=== PATIENT | male | born 1965 | race Caucasian/White ===

== ENCOUNTER 2016-10-31 15:20 | Inpatient (IN) | payer BC ==
[~2016-10-31] VITALS: Ht 180.3 cm; Wt 163.0 kg
[~2016-10-31 15:20] MED LIST: AZAT50 PO; CANA300T PO; CPAP; GABA300C5 PO; LEVO.1 PO; LOVA20TA PO; MEST60TA PO; METF1000 PO; MONT10TA2 PO; NEBI20 PO; NOVOLOGMXP SQ; PRED5TAB PO; PROT40TA PO; RISP.25 PO; TRIBTAB PO; ZITH500T PO
[2016-10-31 17:40] VITALS: BP 120/64; PULSE 66; RESP 20; TEMP 97.7; O2SAT 96
[2016-10-31] MEDS ORDERED: IMUR50TA PO (17:42)
[2016-10-31] MEDS ORDERED: UMEC1AER INH (17:44)
[2016-10-31] MEDS ORDERED: ACETAMINOPHEN 325 MG TAB PO PRN (18:30)
[2016-10-31] MEDS ORDERED: SODIUM CHLORIDE 0.9% FLUSH 5 ML FLUSH FLUSH PRN (18:30)
[2016-10-31] MEDS ORDERED: Vancomycin Consult Pharmacy 1 EA OTHER SCH (18:30)
[2016-10-31] MEDS ORDERED: PIPERACIL-TAZO 3.375 GM PREMIX 50 ML IV SCH (18:30)
[2016-10-31] MEDS ORDERED: NALOXONE HCL 0.4 MG/ML AMP IV PRN (18:30)
[2016-10-31] MEDS ORDERED: ONDANSETRON HCL 4 MG/2 ML VIAL IVP PRN (18:30)
[2016-10-31] MEDS ORDERED: PILL SPLITTER OTHER PRN (19:45)
[2016-10-31 20:00] VITALS: BP 114/57; PULSE 100; RESP 18; TEMP 97.1; O2SAT 96
[2016-10-31] MEDS ORDERED: VANCOMYCIN INJ 1,000 MG in SODIUM CHLOR 0.9% 250 ML INJ 250 ML IV SCH (20:00)
[2016-10-31] MEDS ORDERED: predniSONE 5 MG TAB PO SCH (21:00)
[2016-10-31] MEDS: HEPARIN SODIUM - SQ 10,000 UNITS/ML VIAL SQ SCH (21:14)
[2016-10-31] MEDS: INSULIN ASPAR PROT 70/30 1,000 UNITS/10 ML VIAL SQ SCH (21:20)
[2016-10-31] MEDS: MONTELUKAST SODIUM 10 MG TAB PO SCH (21:25)
[2016-10-31] MEDS: PRAVASTATIN SOD 20 MG TAB PO SCH (21:25)
[2016-10-31] MEDS: SODIUM CHLORIDE 0.9% FLUSH 5 ML FLUSH FLUSH SCH (21:26)
[2016-10-31] MEDS: predniSONE 5 MG TAB PO SCH (21:30)
[2016-10-31] MEDS ORDERED: VANCOMYCIN 1,500 MG/NS 500 ML IV ONE ×2 (23:00)
[2016-10-31] MEDS ORDERED: AZTREONAM 2,000 MG/NS 100 ML IV ONE ×2 (23:00)
[2016-10-31 23:32] LABS: AUTOMATED NEUTROPHIL # 5.9 TH/MM3 (1.8-7.7); BASOPHIL # 0.1 TH/MM3 (0-0.2); BASOPHIL % 0.7 % (0.0-2.0); EOSINOPHIL # 0.1 TH/MM3 (0-0.4); EOSINOPHIL % 1.8 % (0.0-4.0); HEMATOCRIT 36.8 % (39.0-51.0); HEMO FLAGS DIFF FINAL; LYMPH % 16.9 % (9.0-44.0); LYMPHOCYTE # 1.4 TH/MM3 (1.0-4.8); MEAN CELL VOLUME 87.1 FL (80.0-100.0); MEAN CORPUSCULAR HEMOGLOBIN 28.7 PG (27.0-34.0); MONO % 8.2 % (0.0-8.0); NEUT % 72.4 % (16.0-70.0); PLATELET COUNT 149 TH/MM3 (150-450); RED BLOOD COUNT 4.23 MIL/MM3 (4.50-5.90); RED CELL DISTRIBUTION WIDTH 16.1 % (11.6-17.2); WHITE BLOOD COUNT 8.1 TH/MM3 (4.0-11.0)
[2016-11-01] VITALS (10 sets, daily range): BP systolic 121–146; BP diastolic 52–85; PULSE 63–77; RESP 16–18; TEMP 96.3–98.1; O2SAT 94–100
[2016-11-01 05:10] LABS: BLOOD, URINE NEG (NEG); COMMENT (UR) CULT NOT INDICATED; CULTURE IF INDICATED CULT NOT INDICATED; GLUCOSE,URINE 1000 mg/dL (NEG); KETONE, URINE 10 mg/dL (NEG); MUCUS URINE FEW /lpf (OCC); NITRITE,URINE NEG (NEG); URINE COLOR YELLOW (YELLW/STRAW)
[2016-11-01] MEDS: LEVOTHYROXINE SODIUM 100 MCG TAB PO SCH (05:45)
[2016-11-01 07:56] LABS: AUTOMATED NEUTROPHIL # 5.5 TH/MM3 (1.8-7.7); BASOPHIL % 0.6 % (0.0-2.0); EOSINOPHIL # 0.1 TH/MM3 (0-0.4); EOSINOPHIL % 1.6 % (0.0-4.0); HEMATOCRIT 37.2 % (39.0-51.0); HEMO FLAGS DIFF FINAL; LYMPH % 16.1 % (9.0-44.0); LYMPHOCYTE # 1.2 TH/MM3 (1.0-4.8); MEAN CORPUSCULAR HEMOGLOBIN 28.3 PG (27.0-34.0); MONO % 11.1 % (0.0-8.0); NEUT % 70.6 % (16.0-70.0); PLATELET COUNT 159 TH/MM3 (150-450); RED BLOOD COUNT 4.32 MIL/MM3 (4.50-5.90); RED CELL DISTRIBUTION WIDTH 15.7 % (11.6-17.2); WHITE BLOOD COUNT 7.8 TH/MM3 (4.0-11.0)
[2016-11-01] MEDS: HEPARIN SODIUM - SQ 10,000 UNITS/ML VIAL SQ SCH ×2 (08:00→19:40)
[2016-11-01] MEDS: PANTOPRAZOLE SOD 40 MG DELAYED RELEASE TAB PO SCH (08:12)
[2016-11-01] MEDS: SODIUM CHLORIDE 0.9% FLUSH 5 ML FLUSH FLUSH SCH ×2 (08:12→19:40)
[2016-11-01] MEDS: PYRIDOSTIGMINE BROMIDE 60 MG TAB PO SCH ×3 (08:12→18:09)
[2016-11-01] MEDS: UMECLIDINIUM 62.5 MCG/VILANTEROL 25 MCG INHALER INH SCH (08:12)
[2016-11-01] MEDS: NEBIVOLOL 10 MG TAB PO SCH (08:12)
[2016-11-01] MEDS: risperiDONE 0.25 MG TAB PO SCH (08:12)
[2016-11-01] MEDS: GABAPENTIN 300 MG CAP PO SCH ×3 (08:12→18:09)
[2016-11-01] MEDS: predniSONE 5 MG TAB PO SCH ×2 (08:12→19:40)
[2016-11-01 08:22] LABS: BICARBONATE 23.7 MEQ/L (21.0-32.0)
[2016-11-01] MEDS ORDERED: PT:INVOKANA 300 MG PO SCH (09:00)
[2016-11-01] MEDS ORDERED: NON-FORMULARY DRUG (Canagliflozin (Invokana) 300 MG) PO SCH (09:00)
[2016-11-01] MEDS ORDERED: NEBIVOLOL 20 MG PO SCH (09:00)
[2016-11-01] MEDS: INSULIN ASPAR PROT 70/30 1,000 UNITS/10 ML VIAL SQ SCH ×2 (09:43→18:11)
--- NOTE | 2016-11-01 10:08 | MH ---
cc: SAAD ONEILL MD DATE OF ADMISSION: 10/31/2016 DATE OF 1965 REASON FOR ADMISSION Exacerbation of myasthenia gravis. HISTORY OF PRESENT ILLNESS This is a pleasant, morbidly obese 51-year-old male who has been experiencing some increased onset of weakness and slurring and drooping of his eyes over the past week. He also initially had some dizziness and imbalance with his myasthenia gravis exacerbation. The patient went into his primary care physician's office, Genoveva forrest MD for a followup. The patient was noted to have increased weight, elevated blood pressure at 162/74. He also has been suffering with some mild erythema around his PermaCath port. This has been monitored and initially it was thought that he was pruritic in nature, but when the patient was receiving his last treatment recently, he did have a reaction with fever and chills when using that port. Most of this information is being gathered from the record. During my assessment with the patient, he states that his symptoms are now under control. He does sleep at night with BiPAP on. He is alert, oriented, cooperative and a good historian. The patient denies any chest pain. Denies any cough, no fever, no nausea or vomiting. The patient is a diabetic type 2 for greater than 10 years. He has multiple medical comorbidities which do exacerbate at times with his myasthenia gravis. MEDICAL HISTORY Per the record and the patient: 1. Morbid obesity 2. Obstructive sleep apnea 3. COPD 4. Hypertension 5. Diabetes mellitus type 2. He does take insulin for his blood sugars 6. Anemia 7. Gastroesophageal reflux disease 8. Extremity edema PAST SURGICAL HISTORY 1. Dual-chamber Vortex port 12 [place] placed in 2015 2. Colonoscopy in 2013. ALLERGIES PENICILLIN, CEFEPIME AND Maxipime. MEDICATIONS Reconciled and reported: 1. Prednisone 7.5 mg p.o. twice a day 2. Gabapentin 300 mg three times a day 3. Anoro Ellipta inhaler one puff daily 4. Risperdal 0.25 mg daily 5. Bystolic 20 mg daily 6. Metformin 1000 mg twice a day after meals 7. Tribenzor 1 mg daily 8. Losartan 20 mg at bedtime 9. Imuran 75 mg by mouth twice a day 10. NovoLog insulin mix of 70/30 85 units at bedtime and NovoLog mix 80 units subcu daily so he gets two doses 11. Singulair 10 mg at h.s. 12. Zithromax 500 mg daily 13. Mestinon 60 mg three times a day 14. Protonix 40 mg daily 15. Invokana 300 mg daily 16. Synthroid 100 mcg daily SOCIAL HISTORY The patient was a previous tobacco user, quit about 10 years ago. He does have an occasional now rare drink of wine. No illicit drugs. He is and lives at home with his . FAMILY HISTORY Diabetes, hypertension, stroke and cancer. REVIEW OF SYSTEMS A 12-point review was done, positives noted were his original dizziness and imbalance, generalized weakness, fatigue, slurring of speech and drooping of his eyes, morbid obesity. All other systems are negative or unremarkable. PHYSICAL EXAMINATION VITAL SIGNS: Temperature is 97.8, pulse 64, respirations 18, blood pressure 144/85, has been as low as 114/57, O2 sat 98. GENERAL: This is a morbidly obese male who looks to be his stated age resting in the bed, alert, oriented, cooperative. HEENT: Atraumatic, normocephalic. PERRLA at two. He has no scleral icterus. No drainage from his eyes. Mucous membranes are pink and moist. NECK: Thick, obese, short. CARDIOVASCULAR: S1-S2, distant heart sounds but no murmurs appreciated. Trace to 1+ pedal edema bilateral in his lower extremities. RESPIRATORY: Lungs are essentially clear to auscultation. No rhonchi. His chest wall is very thick, but lung sounds are essentially clear. ABDOMEN: Large round, soft, and nontender with active bowel sounds in all four quads. MUSCULOSKELETAL: He moves his extremities with purpose. 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 SKIN: His skin is pink, indra, warm and dry. NEUROLOGIC: He is alert and oriented, a good historian, responds to verbal stimuli. PSYCHIATRIC: Appropriate mood and affect. DIAGNOSTIC DATA WBC count 7.8, RBC 4.32, hemoglobin 12.3, hematocrit 37.2, platelet count 159, neutrophil percentage auto 70.6, monocyte auto percentage 11.1. Chemistry sodium 141, potassium 4, chloride 107, carbon dioxide 23.7, amnion gap 10, BUN 15, creatinine 0.72, random glucose 119, calcium 8.5. His urine is yellow and clear, pH is 6, specific gravity 1.035, negative for protein, occult blood, nitrites bilirubin and leukocyte esterase. His glucose is elevated at 1000. His ketones are 10. IMAGING STUDIES None ASSESSMENT 1. Myasthenia gravis exacerbation 2. Diabetes mellitus type 2 uncontrolled 3. Morbid obesity 4. Obstructive sleep apnea 5. Hypertension 6. Anemia 7. Possible sepsis and infection related to Perma-Cath site PLAN 1. Monitor his vital q4 and p.r.n. 2. We will reconcile his medications. 3. DVT prophylaxis with heparin 4. PUD prophylaxis with Protonix. 5. The patient was placed on antibiotics for the possible line infection of vancomycin and Aztreonam. 6. We will consult ID for their expert opinion. We are looking at changing out and discontinuing the current catheter line in place and placing a new one. 7. We will do Accu-Chek's a.c. and at h.s with sliding-scale 8. 1800 calories ADA diabetic diet. 9. The patient can use his own C-PAP machine at h.s. 10. We will consult respiratory for O2 needs and monitoring of his respiratory needs. Initially the patient was placed on Bedrest. We will monitor him with assistance for any needs for being out of the bed or bedside commode. To my knowledge the patient is a full code, full aggressive care and we will follow. Thank you very much. Dictated by LEN Ruff MD ECHO Brown/FER /9:03 AM /10:07 AM
[2016-11-01] MEDS ORDERED: AZTREONAM IV SCH ×2 (11:00)
[2016-11-01] MEDS ORDERED: AZTREONAM 2,000 MG/NS 100 ML IV SCH ×2 (11:00)
[2016-11-01] MEDS ORDERED: SODIUM CHLORIDE IV SCH ×2 (11:00)
[2016-11-01] MEDS ORDERED: NON-FORMULARY DRUG (Olmesartan-Amlodipine-Hydrochlorothiazide (Tribenzor) 1 TAB) PO SCH (12:30)
--- NOTE | 2016-11-01 13:33 | PD.CONS ---
History of Present Illness Service Infectious disease Consult Requested By Dr Day Reason for Consult Evaluate patient with positive blood cultures Primary Care Physician Genoveva Pelaez DO Diagnoses: History of Present Illness Patient seen and examined. Records reviewed. Patient is a 51-year-old morbidly obese male, admitted to the hospital for further evaluation of his positive blood culture. Patient has a diagnosis of myasthenia gravis, and when he gets exacerbation of his neurological problem, he usually gets a plasmapheresis. He had some venous access at some point on the right side and had some complications related to the access and it has to be removed. He had an [id number] at 1.8 and February or March of last year, and developed a hematoma on his right chest wall. It eventually developed into an abscess, and he was treated for the abscess, and the port was removed. His most recent access is in his left IJ and ate a permacath that was placed May 2016. Since last week he was started on a 4 series of treatment of plasmapheresis and he has had 2 treatments. Last October 30 he was undergoing plasmapheresis and about group home during the treatment, he developed chills and fever. His treatment was stopped, and blood cultures were done. He felt fine after that and has not had any recurrent chills or fever. He was referred to Dr. Garza, an infectious disease specialist, but apparently his blood cultures came back positive, and it was advised that patient go to the hospital for further evaluation and treatment. Patient currently has no fever. His WBC is normal. He has no other complaints. According to the patient he knows when he is getting exacerbation of his myasthenia gravis, he would have slurred speech , and then he would have difficulty opening his eyes, then swallowing difficulty , and without treatment it would progress to difficulty breathing. His symptoms are all better and he seems to be back to his baseline. Infectious disease consultation has been requested to evaluate the patient. Review of Systems Constitutional: COMPLAINS OF: Fever, Chills, Night Sweats, DENIES: Change in appetite Eyes: DENIES: Eye pain Ears, nose, mouth, throat: DENIES: Nasal discharge, Oral lesions, Throat pain, Ear Pain, Sinus Pain, Toothache Respiratory: COMPLAINS OF: Shortness of breath, DENIES: Cough, Sputum production Cardiovascular: DENIES: Chest pain, Palpitations, Syncope Gastrointestinal: DENIES: Abdominal pain, Diarrhea, Nausea, Vomiting, Difficulty Swallowing Genitourinary: DENIES: Dysuria Musculoskeletal: DENIES: Joint pain, Joint Swelling Integumentary: DENIES: Rash Immunologic/allergic: DENIES: Urticaria Neurologic: DENIES: Headache Psychiatric: DENIES: Confusion, Hallucinations Past Family Social History Allergies: Coded Allergies: Penicillin (Verified Allergy, Unknown, Hives, 10/31/16) THROAT SWELLING Uncoded Allergies: maxipime (Adverse Reaction, Severe, Burning, 03/27/16) cefepime (Adverse Reaction, Unknown, Burning, 03/27/16) Past Medical History Morbid obesity Obstructive sleep apnea COPD Hypertension Diabetes mellitus type 2. He does take insulin for his blood sugars Anemia Gastroesophageal reflux disease Lower extremity edema Past Surgical History Infusaport placement x 2, and removal Previous colonoscopy Active Ordered Medications Prednisone Mestinon Risperdal Protonix Pravachol Bystolic Zofran Cozaar Singulair Insulin Synthroid Neurontin Hydrochlorothiazide Vancomycin Azactam Heparin Tylenol Norvasc Imuran Social History Ex smoker, quit 10 years ago Occasional alcohol No illicit drug Physical Exam Vital Signs Vital Signs Date Time Temp Pulse Resp B/P Pulse Ox O2 Delivery O2 Flow Rate FiO2 11/01/16 11:50 97.3 73 16 146/83 100 11/01/16 11:12 72 11/01/16 09:48 97 21 11/01/16 08:00 97.4 66 16 122/77 100 11/01/16 04:00 97.8 64 18 144/85 98 11/01/16 01:13 63 11/01/16 00:00 98.1 66 18 121/52 94 10/31/16 20:00 97.1 100 18 114/57 96 10/31/16 17:40 97.7 66 20 120/64 96 Physical Exam GENERAL: This is an obese, well-developed male, awake and alert, looks comfortable at rest. SKIN: Warm and moist. No generalized rash or ecchymosis. No peripheral embolic lesions seen. HEAD: Atraumatic. Normocephalic. No temporal or scalp tenderness. EYES: [place] conjunctivae, no petechia or hemorrhage. Pupils equal round and reactive. Extraocular motions intact. No scleral icterus. No injection or drainage. ENT: Nose without bleeding, or purulent drainage. Moist oral mucosa. Throat without erythema, or exudate. Uvula midline. Airway patent. NECK: Short and obese. Supple, nontender, no meningeal signs. CARDIOVASCULAR: Regular rate and rhythm without murmurs, gallops, or rubs. Soft heart sounds. Permacath exit site looks ok, dry, no redness, no drainage, not tender, and it tunnels to [facility], the tunnelled portion is not tender and has no redness. RESPIRATORY: Clear to auscultation. Breath sounds equal bilaterally. No wheezes , rales, or rhonchi. Decreased breath sounds at the bases. GASTROINTESTINAL: Abdomen obese, soft, non-tender, nondistended. Bowel sounds are present and hypoactive. Otherwise difficult evaluation for any organomegaly due to the size. MUSCULOSKELETAL: Extremities without clubbing, cyanosis, or edema. No joint effusion, or edema noted. No calf tenderness. Negative Homans sign bilaterally. NEUROLOGICAL: Awake and alert. Cranial nerves II through XII intact. Motor and sensory grossly within normal limits. Five out of 5 muscle strength in all muscle groups. Normal speech. PSYCH: Normal affect, calm and cooperative Laboratory Laboratory Tests Test 10/31/16 11/01/16 11/01/16 21:00 04:50 06:52 White Blood Count 8.1 7.8 Red Blood Count 4.23 4.32 Hemoglobin 12.1 12.3 Hematocrit 36.8 37.2 Mean Corpuscular Volume 87.1 86.0 Mean Corpuscular Hemoglobin 28.7 28.3 Mean Corpuscular Hemoglobin 33.0 33.0 Concent Red Cell Distribution Width 16.1 15.7 Platelet Count 149 159 Mean Platelet Volume 8.5 7.7 Neutrophils (%) (Auto) 72.4 70.6 Lymphocytes (%) (Auto) 16.9 16.1 Monocytes (%) (Auto) 8.2 11.1 Eosinophils (%) (Auto) 1.8 1.6 Basophils (%) (Auto) 0.7 0.6 Neutrophils # (Auto) 5.9 5.5 Lymphocytes # (Auto) 1.4 1.2 Monocytes # (Auto) 0.7 0.9 Eosinophils # (Auto) 0.1 0.1 Basophils # (Auto) 0.1 0.0 CBC Comment DIFF FINAL DIFF FINAL Differential Comment Urine Color YELLOW Urine Turbidity CLEAR Urine pH 6.0 Urine Specific [place] 1.035 Urine Protein NEG Urine Glucose (UA) 1000 Urine Ketones 10 Urine Occult Blood NEG Urine Nitrite NEG Urine Bilirubin NEG Urine Urobilinogen LESS THAN 2.0 Urine Leukocyte Esterase NEG Urine RBC 1 Urine WBC LESS THAN 1 Urine Mucus FEW Microscopic Urinalysis Comment CULT NOT INDICATED Sodium Level 141 Potassium Level 4.0 Chloride Level 107 Carbon Dioxide Level 23.7 Anion Gap 10 Blood Urea Nitrogen 15 Creatinine 0.72 Estimat Glomerular Filtration 116 Rate Random Glucose 119 Calcium Level 8.5 Date/Time Procedure Status Source Growth 11/01/16 06:57 Aerobic Blood Culture Received Blood Peripheral Pending 11/01/16 06:57 Anaerobic Blood Culture Received Blood Peripheral Pending Result Diagram: 11/01/16 0652 11/01/1652 Assessment and Plan Assessment and Plan IMPRESSION Sepsis, with BC (+) Coag Negative Staph, from permacath infection - had fever and chills during his plasmapheresis Myasthenia gravis Sleep apnea, COPD Morbid obesity RECOMMENDATION US [facility]J and LSC to check for thrombus Follow C/S Continue IV Vancomycin Stop Azactam Will likely need removal of permacath Follow C/S Monitor temps Will determine course of Rx once work-up is completed I will follow along with you Thank you for this consultation Discussed Condition With Explained plan to patient Reta Martin MD Nov 01, 2016 13:33
[2016-11-01] MEDS ORDERED: LIDOCAINE 1%/EPINEPHrine 1:100,000 SOLN 20 ML VIAL ONE (14:02)
--- NOTE | 2016-11-01 15:27 | RADRPT ---
EXAM DATE/TIME: 11/01/2016 00:00 [facility] COMPARISON: No previous studies available for comparison. INDICATIONS : Patient with history of myasthenia gravis in need of tunnelled dialysis catheter removal due to infec tion. MEDICAL HISTORY : HTN, Obstructive sleep apnea, COPD, Diabetes, Anemia, GERD, Extremity edema, Hypothyroid SURGICAL HISTORY : Dual port placement and removal, Dialysis catheter placement, Colonoscopy, Tonsillectomy ENCOUNTER: Subsequent ACUITY: 1 day PAIN SCORE: 0/10 PROCEDURE : 1. PermaCath removal. The risks, benefits and alternatives to the procedure were explained and verbal and written consent w as obtained. The site was prepped in sterile fashion. Full sterile technique was used, including ca p, mask, sterile gloves and gown and a large sterile sheet. Hand hygiene and 2% chlorhexidine and/or betadine/alcohol prep was utilized per protocol for cutaneous antisepsis. The skin and subcutaneous tissues were infiltrated with local anesthetic solution. The tract was anesthetized with 1% Lidocaine using. The Permcath was dissected from the subcutaneous tissues and easily removed in one piece. Manual pressure was applied to the venotomy site until hem ostasis was obtained. Sterile dressing was applied. The patient tolerated the procedure well and there were no complications. CONCLUSION: Uncomplicated Permcath removal. Braxton Dimas MD on November 01, 2016 at 15:25 Board Certified Radiologist. This report was verified electronically.
[2016-11-01] MEDS: VANCOMYCIN INJ 2,250 MG in SODIUM CHLORID 0.9% 500 ML INJ 500 ML IV SCH (15:59)
--- NOTE | 2016-11-01 16:13 | RADRPT ---
EXAM DATE/TIME: 11/01/2016 15:06 [facility] COMPARISON: ULTRASOUND SOFT TISSUE, March 27, 2016, 15:25. INDICATIONS : Left arm pain post permacath removal. MEDICAL HISTORY : Hypercholesterolemia. Hypertension. Chronic obstructive pulmonary disease. Thyroid disease. GERD. Barbara betes. Myastinia Gravis. SURGICAL HISTORY : Tonsillectomy. Port placement and removal. Permacath placement and removal. ENCOUNTER: Initial ACUITY: 1 day PAIN SCORE: 0/10 LOCATION: Left arm. FINDINGS: There is spontaneous flow documented in the brachial, basilic, cephalic, axillary, and subclavian vei ns. The vessels are compressible and augmentation response is documented. No filling defects are se en. The flow is phasic with respiration. Direction of flow in the jugular vein is caudal. CONCLUSION: 1. No venous thrombosis identified. Valdemar Blevins MD on November 01, 2016 at 16:12 Board Certified Radiologist. This report was verified electronically.
[2016-11-01] MEDS: PRAVASTATIN SOD 20 MG TAB PO SCH (19:39)
[2016-11-01] MEDS: MONTELUKAST SODIUM 10 MG TAB PO SCH (19:39)
[2016-11-01] MEDS: azaTHIOprine 50 MG TAB PO SCH (19:39)
[2016-11-01] MEDS: LOSARTAN 50 MG TAB PO SCH (20:22)
[2016-11-01] MEDS: HYDROCHLOROTHIAZIDE 12.5 MG CAP PO SCH (20:22)
[2016-11-01] MEDS: amLODIPine BESYLATE 5 MG TAB PO SCH (20:22)
[2016-11-02] VITALS (8 sets, daily range): BP systolic 128–157; BP diastolic 54–79; PULSE 65–70; RESP 16–20; TEMP 97.1–98.5; O2SAT 93–97
[2016-11-02] MEDS: VANCOMYCIN INJ 2,250 MG in SODIUM CHLORID 0.9% 500 ML INJ 500 ML IV SCH ×2 (00:41→13:26)
[2016-11-02] MEDS: LEVOTHYROXINE SODIUM 100 MCG TAB PO SCH (05:20)
[2016-11-02] MEDS: HEPARIN SODIUM - SQ 10,000 UNITS/ML VIAL SQ SCH ×2 (08:00→20:00)
[2016-11-02] MEDS: GABAPENTIN 300 MG CAP PO SCH ×3 (08:09→18:04)
[2016-11-02] MEDS: risperiDONE 0.25 MG TAB PO SCH (08:09)
[2016-11-02] MEDS: PANTOPRAZOLE SOD 40 MG DELAYED RELEASE TAB PO SCH (08:09)
[2016-11-02] MEDS: PYRIDOSTIGMINE BROMIDE 60 MG TAB PO SCH ×3 (08:10→18:04)
[2016-11-02] MEDS: predniSONE 5 MG TAB PO SCH ×2 (08:10→20:11)
[2016-11-02] MEDS: NEBIVOLOL 10 MG TAB PO SCH (08:10)
[2016-11-02] MEDS: azaTHIOprine 50 MG TAB PO SCH ×2 (08:10→20:11)
[2016-11-02] MEDS: SODIUM CHLORIDE 0.9% FLUSH 5 ML FLUSH FLUSH SCH ×2 (08:11→20:12)
[2016-11-02] MEDS: UMECLIDINIUM 62.5 MCG/VILANTEROL 25 MCG INHALER INH SCH (08:11)
[2016-11-02] MEDS: INSULIN ASPAR PROT 70/30 1,000 UNITS/10 ML VIAL SQ SCH ×2 (08:12→18:06)
--- NOTE | 2016-11-02 14:47 | HHI.IDPN ---
Subjective Subjective Remarks Notes reviewed Temps ok No chills Permacath removed yesterday C/O some soreness at previous site Wants to know if he can take a shower Antibiotics Vancomycin Lines PIV Past Medical History Morbid obesity Obstructive sleep apnea COPD Hypertension Diabetes mellitus type 2. He does take insulin for his blood sugars Anemia Gastroesophageal reflux disease Lower extremity edema Past Surgical History Infusaport placement x 2, and removal Previous colonoscopy Allergies: Coded Allergies: Penicillin (Verified Allergy, Unknown, Hives, 10/31/16) THROAT SWELLING Uncoded Allergies: maxipime (Adverse Reaction, Severe, Burning, 03/27/16) cefepime (Adverse Reaction, Unknown, Burning, 03/27/16) Objective . Vital Signs Date Time Temp Pulse Resp B/P Pulse Ox O2 Delivery O2 Flow Rate FiO2 11/02/16 12:00 98.5 68 20 130/69 96 11/02/16 09:24 93 21 11/02/16 08:00 97.8 69 20 152/70 97 11/02/16 04:00 97.8 66 20 145/79 97 11/02/16 00:00 97.1 65 17 157/54 97 11/01/16 20:00 96.3 67 18 129/71 97 11/01/16 20:00 77 11/01/16 17:04 98 21 11/01/16 16:00 97.1 72 18 146/79 96 11/01/16 11/01/16 11/02/16 15:00 23:00 07:00 Intake Total 720 ml 600 ml Balance 720 ml 600 ml Intake Oral 720 ml 600 ml # Voids 2 2 . Laboratory Tests Test 10/31/16 11/01/16 21:00 06:52 White Blood Count 8.1 TH/MM3 7.8 TH/MM3 Red Blood Count 4.23 MIL/MM3 4.32 MIL/MM3 Hemoglobin 12.1 GM/DL 12.3 GM/DL Hematocrit 36.8 % 37.2 % Mean Corpuscular Volume 87.1 FL 86.0 FL Mean Corpuscular Hemoglobin 28.7 PG 28.3 PG Mean Corpuscular Hemoglobin 33.0 % 33.0 % Concent Red Cell Distribution Width 16.1 % 15.7 % Platelet Count 149 TH/MM3 159 TH/MM3 Mean Platelet Volume 8.5 FL 7.7 FL Neutrophils (%) (Auto) 72.4 % 70.6 % Lymphocytes (%) (Auto) 16.9 % 16.1 % Monocytes (%) (Auto) 8.2 % 11.1 % Eosinophils (%) (Auto) 1.8 % 1.6 % Basophils (%) (Auto) 0.7 % 0.6 % Neutrophils # (Auto) 5.9 TH/MM3 5.5 TH/MM3 Lymphocytes # (Auto) 1.4 TH/MM3 1.2 TH/MM3 Monocytes # (Auto) 0.7 TH/MM3 0.9 TH/MM3 Eosinophils # (Auto) 0.1 TH/MM3 0.1 TH/MM3 Basophils # (Auto) 0.1 TH/MM3 0.0 TH/MM3 CBC Comment DIFF FINAL DIFF FINAL Differential Comment Laboratory Tests Test 11/01/16 06:52 Sodium Level 141 MEQ/L Potassium Level 4.0 MEQ/L Chloride Level 107 MEQ/L Carbon Dioxide Level 23.7 MEQ/L Anion Gap 10 MEQ/L Blood Urea Nitrogen 15 MG/DL Creatinine 0.72 MG/DL Estimat Glomerular Filtration 116 ML/MIN Rate Random Glucose 119 MG/DL Calcium Level 8.5 MG/DL Microbiology Date/Time Procedure Status Source Growth 11/01/16 06:52 Aerobic Blood Culture - Preliminary Resulted Blood Peripheral NO GROWTH IN 1 DAY 11/01/16 06:52 Anaerobic Blood Culture - Preliminary Resulted Blood Peripheral NO GROWTH IN 1 DAY 11/01/16 06:57 Aerobic Blood Culture - Preliminary Resulted Blood Peripheral NO GROWTH IN 1 DAY 11/01/16 06:57 Anaerobic Blood Culture - Preliminary Resulted Blood Peripheral NO GROWTH IN 1 DAY 11/01/16 14:13 Wound Culture Received Catheter Tip Vas Cath Pending Imaging Upper Extremity Ultrasound 11/01/16 0000 Signed Impressions: Service Date/Time: Tuesday, November 01, 2016 15:06 - CONCLUSION: 1. No venous thrombosis identified. Valdemar Blevins MD Central Venous Line 11/01/16 0000 Signed Impressions: Service Date/Time: Tuesday, November 01, 2016 00:00 - CONCLUSION: Uncomplicated Permcath removal. Braxton Dimas MD Physical Exam GENERAL: , awake and alert, looks comfortable at rest. SKIN: Warm and moist. No generalized rash or ecchymosis. No peripheral embolic lesions seen. HEENT: [place] conjunctivae, no petechia or hemorrhage. No scleral icterus. Moist oral mucosa. Throat without erythema, or exudate. Uvula midline. Airway patent. NECK: Short and obese. Supple, nontender, no meningeal signs. Has some swelling at base of left side of his neck where he had the tunnelled cath CARDIOVASCULAR: Regular rate and rhythm without murmurs, gallops, or rubs. Soft heart sounds. Permacath exit site has some induration and small amount of serous drainage. RESPIRATORY: Clear to auscultation. Breath sounds equal bilaterally. No wheezes , rales, or rhonchi. Decreased breath sounds at the bases. GASTROINTESTINAL: Abdomen obese, soft, non-tender, nondistended. Bowel sounds are present and hypoactive. Otherwise difficult evaluation for any organomegaly due to the size. MUSCULOSKELETAL: Extremities without clubbing, cyanosis, or edema. No joint effusion, or edema noted. No calf tenderness. NEUROLOGICAL: Non-focal PSYCH: Normal affect, calm and cooperative Assessment & Plan Remarks IMPRESSION Sepsis, with BC (+) Coag Negative Staph, from permacath infection - had fever and chills during his plasmapheresis Myasthenia gravis Sleep apnea, COPD Morbid obesity RECOMMENDATION US [facility]J and LSC to check for thrombus Follow C/S Continue IV Vancomycin Monitor temps Monitor progress D/W Reta Brown MD Nov 02, 2016 14:47
--- NOTE | 2016-11-02 17:46 | HHI.PR ---
Subjective Interval History alert, oriented, no specific complaints other than wanting to have a shower Review of Systems Constitutional Constitutional Remarks 10 systems reviewed otherwise negative Vitals/Results Intake & Output 11/01/16 11/01/16 11/02/16 15:00 23:00 07:00 Intake Total 720 ml 600 ml Balance 720 ml 600 ml Intake Oral 720 ml 600 ml # Voids 2 2 Vital Signs Vital Signs Date Time Temp Pulse Resp B/P Pulse Ox O2 Delivery O2 Flow Rate FiO2 11/02/16 17:01 69 11/02/16 16:00 98.2 70 16 128/71 97 11/02/16 12:00 98.5 68 20 130/69 96 11/02/16 09:24 93 21 11/02/16 08:00 97.8 69 20 152/70 97 11/02/16 04:00 97.8 66 20 145/79 97 11/02/16 00:00 97.1 65 17 157/54 97 11/01/16 20:00 96.3 67 18 129/71 97 11/01/16 20:00 77 CBC/BMP: 11/01/16 0652 11/01/16 0652 Physical Exam General General Appearance: Well Developed, No Acute Distress, Comfortable, Obese Eyes Eye Exam: Pupils Reactive Ears & Nose Ears & Nose Exam: Nasal Mucosa [place] Throat Throat Exam: Oral Mucosa [place] & Moist Neck Neck Exam: Trachea Midline Pulmonary Resp Exam: Breath Sounds Equal Cardiology CV Exam: Normal Sinus Rhythm Gastrointestinal/Abdomen GI Exam: Soft, Non-Tender Musculoskeletal MS Exam: Normal Tone Integumentary Skin Exam: Warm, Dry Skin Remarks Psoriasis Extremeties Extremities Exam: Trace Edema Neurologic Neuro Exam: Alert, Awake, Oriented Psychiatric Psych Exam: Appropriate Responses Assessment/Plan Assessment/Plan ASSESSMENT . Gram-negative Bacteremia, likely secondary to line infection . Myasthenia gravis exacerbation . Diabetes mellitus type 2 uncontrolled . Morbid obesity . Obstructive sleep apnea . Hypertension . Anemia . Possible sepsis and infection related to Perma-Cath site PLAN . Intravenous antibiotics according to infectious disease specialist . Monitor his vital q4 and p.r.n. . DVT prophylaxis with heparin . PUD prophylaxis with Protonix. . Central line removed, tip culture pending . We will do Accu-Chek's a.c. and at h.s with sliding-scale . 1800 calories ADA diabetic diet. . The patient can use his own C-PAP machine at h.s. . Supplemental oxygen Discussed with patient Discussed with nurse Baldomero Leone MD Nov 02, 2016 17:46
[2016-11-02] MEDS: LOSARTAN 50 MG TAB PO SCH (20:11)
[2016-11-02] MEDS: PRAVASTATIN SOD 20 MG TAB PO SCH (20:12)
[2016-11-02] MEDS: MONTELUKAST SODIUM 10 MG TAB PO SCH (20:12)
[2016-11-02] MEDS: HYDROCHLOROTHIAZIDE 12.5 MG CAP PO SCH (20:12)
[2016-11-02] MEDS: amLODIPine BESYLATE 5 MG TAB PO SCH (20:12)
[2016-11-03] VITALS (8 sets, daily range): BP systolic 129–143; BP diastolic 64–90; PULSE 57–86; RESP 16–18; TEMP 96.3–97.8; O2SAT 94–97
[2016-11-03] MEDS: VANCOMYCIN INJ 2,250 MG in SODIUM CHLORID 0.9% 500 ML INJ 500 ML IV SCH ×2 (00:38→14:04)
[2016-11-03] MEDS ORDERED: PHARMACY ORDERED LAB XX ONE (00:45)
[2016-11-03] MEDS: LEVOTHYROXINE SODIUM 100 MCG TAB PO SCH (05:45)
[2016-11-03 07:14] LABS: AUTOMATED NEUTROPHIL # 4.4 TH/MM3 (1.8-7.7); BASOPHIL % 0.8 % (0.0-2.0); EOSINOPHIL # 0.1 TH/MM3 (0-0.4); EOSINOPHIL % 2.4 % (0.0-4.0); HEMATOCRIT 37.2 % (39.0-51.0); HEMO FLAGS DIFF FINAL; LYMPH % 15.9 % (9.0-44.0); MEAN CELL VOLUME 86.1 FL (80.0-100.0); MEAN CORPUSCULAR HEMOGLOBIN 28.3 PG (27.0-34.0); MEAN CORPUSCULAR HGB CONC 32.9 % (32.0-36.0); MONO % 9.9 % (0.0-8.0); PLATELET COUNT 176 TH/MM3 (150-450); RED BLOOD COUNT 4.31 MIL/MM3 (4.50-5.90); RED CELL DISTRIBUTION WIDTH 15.7 % (11.6-17.2); WHITE BLOOD COUNT 6.2 TH/MM3 (4.0-11.0)
[2016-11-03 07:56] LABS: BICARBONATE 29.8 MEQ/L (21.0-32.0); MAGNESIUM 2.1 MG/DL (1.5-2.5); POTASSIUM 4.3 MEQ/L (3.5-5.1)
[2016-11-03] MEDS: GABAPENTIN 300 MG CAP PO SCH ×3 (08:39→17:57)
[2016-11-03] MEDS: NEBIVOLOL 10 MG TAB PO SCH (08:39)
[2016-11-03] MEDS: azaTHIOprine 50 MG TAB PO SCH ×2 (08:39→21:11)
[2016-11-03] MEDS: PANTOPRAZOLE SOD 40 MG DELAYED RELEASE TAB PO SCH (08:39)
[2016-11-03] MEDS: predniSONE 5 MG TAB PO SCH ×2 (08:39→21:12)
[2016-11-03] MEDS: PYRIDOSTIGMINE BROMIDE 60 MG TAB PO SCH ×3 (08:45→17:57)
[2016-11-03] MEDS: risperiDONE 0.25 MG TAB PO SCH (08:47)
[2016-11-03] MEDS: INSULIN ASPAR PROT 70/30 1,000 UNITS/10 ML VIAL SQ SCH ×2 (08:48→17:57)
[2016-11-03] MEDS: SODIUM CHLORIDE 0.9% FLUSH 5 ML FLUSH FLUSH SCH ×2 (08:48→21:13)
[2016-11-03] MEDS: HEPARIN SODIUM - SQ 10,000 UNITS/ML VIAL SQ SCH ×2 (08:48→20:00)
[2016-11-03] MEDS: UMECLIDINIUM 62.5 MCG/VILANTEROL 25 MCG INHALER INH SCH (08:49)
[2016-11-03] MEDS ORDERED: ACETAMINOPHEN 325 MG TAB PO PRN (12:00)
--- NOTE | 2016-11-03 15:08 | HHI.IDPN ---
Subjective Subjective Remarks Notes reviewed Temps ok No chills Permacath removed 11/01 Follow-up BC negative Cath tip with Coag neg Staph and GNR No GNR in any BC Micro working up the Coag Neg Staph in the second BC; one had Staph epi Micro willl also work-up the Coag Neg Staph in his permacath tip Antibiotics Vancomycin Lines PIV Past Medical History Morbid obesity Obstructive sleep apnea COPD Hypertension Diabetes mellitus type 2. He does take insulin for his blood sugars Anemia Gastroesophageal reflux disease Lower extremity edema Past Surgical History Infusaport placement x 2, and removal Previous colonoscopy Allergies: Coded Allergies: Penicillin (Verified Allergy, Unknown, Hives, 10/31/16) THROAT SWELLING Uncoded Allergies: maxipime (Adverse Reaction, Severe, Burning, 03/27/16) cefepime (Adverse Reaction, Unknown, Burning, 03/27/16) Objective . Vital Signs Date Time Temp Pulse Resp B/P Pulse Ox O2 Delivery O2 Flow Rate FiO2 11/03/16 12:00 97.4 69 16 139/90 96 11/03/16 08:00 96.3 66 16 142/90 95 11/03/16 04:00 96.7 86 18 143/79 96 11/03/16 00:00 97.8 57 16 138/64 97 11/02/16 20:00 97.7 70 18 133/67 94 11/02/16 20:00 68 11/02/16 17:01 69 11/02/16 16:00 98.2 70 16 128/71 97 11/02/16 11/02/16 11/03/16 15:00 23:00 07:00 Intake Total 1200 ml 450 ml 200 ml Balance 1200 ml 450 ml 200 ml Intake Oral 1200 ml 450 ml 200 ml # Voids 3 1 1 # Bowel Movements 1 0 0 . Laboratory Tests Test 11/03/16 06:23 White Blood Count 6.2 TH/MM3 Red Blood Count 4.31 MIL/MM3 Hemoglobin 12.2 GM/DL Hematocrit 37.2 % Mean Corpuscular Volume 86.1 FL Mean Corpuscular Hemoglobin 28.3 PG Mean Corpuscular Hemoglobin 32.9 % Concent Red Cell Distribution Width 15.7 % Platelet Count 176 TH/MM3 Mean Platelet Volume 7.7 FL Neutrophils (%) (Auto) 71.0 % Lymphocytes (%) (Auto) 15.9 % Monocytes (%) (Auto) 9.9 % Eosinophils (%) (Auto) 2.4 % Basophils (%) (Auto) 0.8 % Neutrophils # (Auto) 4.4 TH/MM3 Lymphocytes # (Auto) 1.0 TH/MM3 Monocytes # (Auto) 0.6 TH/MM3 Eosinophils # (Auto) 0.1 TH/MM3 Basophils # (Auto) 0.0 TH/MM3 CBC Comment DIFF FINAL Differential Comment Laboratory Tests Test 11/03/16 06:23 Sodium Level 140 MEQ/L Potassium Level 4.3 MEQ/L Chloride Level 105 MEQ/L Carbon Dioxide Level 29.8 MEQ/L Anion Gap 5 MEQ/L Blood Urea Nitrogen 16 MG/DL Creatinine 0.88 MG/DL Estimat Glomerular Filtration 92 ML/MIN Rate Random Glucose 238 MG/DL Calcium Level 8.3 MG/DL Phosphorus Level 3.7 MG/DL Magnesium Level 2.1 MG/DL Microbiology Date/Time Procedure Status Source Growth 11/01/16 06:52 Aerobic Blood Culture - Preliminary Resulted Blood Peripheral NO GROWTH IN 2 DAYS 11/01/16 06:52 Anaerobic Blood Culture - Preliminary Resulted Blood Peripheral NO GROWTH IN 2 DAYS 11/01/16 06:57 Aerobic Blood Culture - Preliminary Resulted Blood Peripheral NO GROWTH IN 2 DAYS 11/01/16 06:57 Anaerobic Blood Culture - Preliminary Resulted Blood Peripheral NO GROWTH IN 2 DAYS 11/01/16 14:13 Wound Culture - Preliminary Resulted Catheter Tip Vas Cath Staph Sp Coagulase Negative Gram Negative [facility] Upper Extremity Ultrasound 11/01/16 0000 Signed Impressions: Service Date/Time: Tuesday, November 01, 2016 15:06 - CONCLUSION: 1. No venous thrombosis identified. Valdemar Blevins MD Central Venous Line 11/01/16 0000 Signed Impressions: Service Date/Time: Tuesday, November 01, 2016 00:00 - CONCLUSION: Uncomplicated Permcath removal. Braxton Dimas MD Physical Exam GENERAL: , awakens easily, NAD. SKIN: Warm and moist. No generalized rash HEENT: [place] conjunctivae, no petechia or hemorrhage. No scleral icterus. Moist oral mucosa. NECK: Short and obese. Supple, nontender, no meningeal signs. Has some mild swelling at base of left side of his neck where he had the tunnelled cath CARDIOVASCULAR: Regular rate and rhythm without murmurs, gallops, or rubs. Soft heart sounds. Permacath exit site has some induration and small amount of serous drainage. RESPIRATORY: Clear to auscultation. Decreased breath sounds at the bases. GASTROINTESTINAL: Abdomen obese, soft, non-tender, nondistended. Bowel sounds are present and hypoactive. Otherwise difficult evaluation for any organomegaly due to the size. MUSCULOSKELETAL: Extremities without clubbing, cyanosis, or edema. No joint effusion, or edema noted. No calf tenderness. NEUROLOGICAL: Non-focal PSYCH: Normal affect, calm and cooperative Assessment & Plan Remarks IMPRESSION Sepsis, with BC (+) Coag Negative Staph, from permacath infection - had fever and chills during his plasmapheresis Myasthenia gravis Sleep apnea, COPD Morbid obesity RECOMMENDATION Follow C/S - micro doing ID of the second BC with Coag Neg Staph, as well as the Coag neg Staph in permacath tip Continue IV Vancomycin - at least 10-14 days, end date november 14 Follow C/S Monitor temps Monitor progress Reta Martin MD Nov 03, 2016 15:08
--- NOTE | 2016-11-03 18:47 | HHI.PR ---
Subjective Interval History Alert, oriented, seemed presence of his , denies any complaints at this time , his myasthenia gravis is quiescent at this time Review of Systems Constitutional Constitutional Remarks 10 systems reviewed otherwise negative Vitals/Results Intake & Output 11/02/16 11/02/16 11/03/16 15:00 23:00 07:00 Intake Total 1200 ml 450 ml 200 ml Balance 1200 ml 450 ml 200 ml Intake Oral 1200 ml 450 ml 200 ml # Voids 3 1 1 # Bowel Movements 1 0 0 Vital Signs Vital Signs Date Time Temp Pulse Resp B/P Pulse Ox O2 Delivery O2 Flow Rate FiO2 11/03/16 16:00 96.3 72 16 129/76 96 11/03/16 15:53 16 11/03/16 12:00 97.4 69 16 139/90 96 11/03/16 08:00 96.3 66 16 142/90 95 11/03/16 07:10 59 11/03/16 04:00 96.7 86 18 143/79 96 11/03/16 00:00 97.8 57 16 138/64 97 11/02/16 20:00 97.7 70 18 133/67 94 11/02/16 20:00 68 CBC/BMP: 11/03/16 0623 11/03/16 0623 Lab Results Laboratory Tests Test 11/03/16 11/03/16 00:45 06:23 Vancomycin Level Trough 12.8 MCG/ML White Blood Count 6.2 TH/MM3 Red Blood Count 4.31 MIL/MM3 Hemoglobin 12.2 GM/DL Hematocrit 37.2 % Mean Corpuscular Volume 86.1 FL Mean Corpuscular Hemoglobin 28.3 PG Mean Corpuscular Hemoglobin 32.9 % Concent Red Cell Distribution Width 15.7 % Platelet Count 176 TH/MM3 Mean Platelet Volume 7.7 FL Neutrophils (%) (Auto) 71.0 % Lymphocytes (%) (Auto) 15.9 % Monocytes (%) (Auto) 9.9 % Eosinophils (%) (Auto) 2.4 % Basophils (%) (Auto) 0.8 % Neutrophils # (Auto) 4.4 TH/MM3 Lymphocytes # (Auto) 1.0 TH/MM3 Monocytes # (Auto) 0.6 TH/MM3 Eosinophils # (Auto) 0.1 TH/MM3 Basophils # (Auto) 0.0 TH/MM3 CBC Comment DIFF FINAL Differential Comment Sodium Level 140 MEQ/L Potassium Level 4.3 MEQ/L Chloride Level 105 MEQ/L Carbon Dioxide Level 29.8 MEQ/L Anion Gap 5 MEQ/L Blood Urea Nitrogen 16 MG/DL Creatinine 0.88 MG/DL Estimat Glomerular Filtration 92 ML/MIN Rate Random Glucose 238 MG/DL Calcium Level 8.3 MG/DL Phosphorus Level 3.7 MG/DL Magnesium Level 2.1 MG/DL Physical Exam General General Appearance: Well Developed, No Acute Distress, Comfortable, Obese Eyes Eye Exam: Pupils Reactive Ears & Nose Ears & Nose Exam: Nasal Mucosa [place] Throat Throat Exam: Oral Mucosa [place] & Moist Neck Neck Exam: Trachea Midline Pulmonary Resp Exam: Breath Sounds Equal Cardiology CV Exam: Normal Sinus Rhythm Gastrointestinal/Abdomen GI Exam: Soft, Non-Tender Musculoskeletal MS Exam: Normal Tone Integumentary Skin Exam: Warm, Dry Skin Remarks Psoriasis Extremeties Extremities Exam: Trace Edema Neurologic Neuro Exam: Alert, Awake, Oriented Psychiatric Psych Exam: Appropriate Responses Assessment/Plan Assessment/Plan ASSESSMENT . Gram-negative Bacteremia, likely secondary to line infection . Myasthenia gravis exacerbation . Diabetes mellitus type 2 uncontrolled . Morbid obesity . Obstructive sleep apnea . Hypertension . Anemia . Possible sepsis and infection related to Perma-Cath site . Central line removed, tip culture pending PLAN . Intravenous antibiotics according to infectious disease specialist . Monitor his vital q4 and p.r.n. . DVT prophylaxis with heparin . PUD prophylaxis with Protonix. . Accu-Chek's a.c. and at h.s with sliding-scale . 1800 calories ADA diabetic diet. . The patient can use his own C-PAP machine at h.s. . Supplemental oxygen . Follow cultures, including the PermCath tip . Continue vancomycin at least 10-14 days, and this time stop date is 11/14/16 Needs to lose weight Discussed with patient Discussed with nurse Baldomero Leone MD Nov 03, 2016 18:46
[2016-11-03] MEDS: PRAVASTATIN SOD 20 MG TAB PO SCH (21:09)
[2016-11-03] MEDS: amLODIPine BESYLATE 5 MG TAB PO SCH (21:10)
[2016-11-03] MEDS: HYDROCHLOROTHIAZIDE 12.5 MG CAP PO SCH (21:10)
[2016-11-03] MEDS: LOSARTAN 50 MG TAB PO SCH (21:10)
[2016-11-03] MEDS: MONTELUKAST SODIUM 10 MG TAB PO SCH (21:12)
[2016-11-04] VITALS (7 sets, daily range): BP systolic 133–149; BP diastolic 75–86; PULSE 66–73; RESP 18–20; TEMP 96.2–97.4; O2SAT 95–97
[2016-11-04] MEDS: VANCOMYCIN INJ 2,250 MG in SODIUM CHLORID 0.9% 500 ML INJ 500 ML IV SCH ×2 (00:33→12:38)
[2016-11-04] MEDS ORDERED: PHARMACY ORDERED LAB XX ONE (00:45)
[2016-11-04] MEDS: LEVOTHYROXINE SODIUM 100 MCG TAB PO SCH (05:02)
[2016-11-04] MEDS: INSULIN ASPAR PROT 70/30 1,000 UNITS/10 ML VIAL SQ SCH ×2 (08:47→17:45)
[2016-11-04] MEDS: GABAPENTIN 300 MG CAP PO SCH ×3 (08:48→17:38)
[2016-11-04] MEDS: PANTOPRAZOLE SOD 40 MG DELAYED RELEASE TAB PO SCH (08:48)
[2016-11-04] MEDS: risperiDONE 0.25 MG TAB PO SCH (08:48)
[2016-11-04] MEDS: azaTHIOprine 50 MG TAB PO SCH ×2 (08:49→20:25)
[2016-11-04] MEDS: NEBIVOLOL 10 MG TAB PO SCH (08:49)
[2016-11-04] MEDS: PYRIDOSTIGMINE BROMIDE 60 MG TAB PO SCH ×3 (08:49→17:38)
[2016-11-04] MEDS: HEPARIN SODIUM - SQ 10,000 UNITS/ML VIAL SQ SCH ×2 (08:53→20:00)
[2016-11-04] MEDS: SODIUM CHLORIDE 0.9% FLUSH 5 ML FLUSH FLUSH SCH ×2 (09:00→20:32)
[2016-11-04] MEDS: predniSONE 5 MG TAB PO SCH ×2 (09:09→20:28)
[2016-11-04] MEDS: UMECLIDINIUM 62.5 MCG/VILANTEROL 25 MCG INHALER INH SCH (09:11)
--- NOTE | 2016-11-04 16:00 | HHI.PR ---
Subjective Remarks Alert, oriented, denies any complaints at this time. Wants to go home. Needs outpatient IV abx. Objective Objective Results - Vital Signs Date Time Temp Pulse Resp B/P Pulse Ox O2 Delivery O2 Flow Rate FiO2 11/04/16 12:00 97.4 66 20 133/75 95 11/04/16 10:11 96.3 72 18 139/76 95 11/04/16 04:00 96.9 66 18 143/76 97 11/04/16 00:00 96.2 67 19 139/80 96 11/03/16 21:00 74 11/03/16 20:00 96.9 72 18 142/78 94 11/03/16 16:00 96.3 72 16 129/76 96 I/O 11/03/16 11/03/16 11/03/16 11/04/16 11/04/16 11/04/16 07:00 15:00 23:00 07:00 15:00 23:00 Intake Total 200 ml 960 ml 480 ml 120 ml 1020 ml Balance 200 ml 960 ml 480 ml 120 ml 1020 ml Intake Oral 200 ml 960 ml 480 ml 120 ml 1020 ml # Voids 1 5 6 1 1 # Bowel Movements 0 2 3 Result Diagram: 11/03/16 0623 11/03/16 0623 Other Results Laboratory Tests Test 11/04/16 00:30 Vancomycin Level Trough 14.2 Date/Time Procedure Status Source Growth 11/01/16 14:13 Wound Culture - Final Complete Catheter Tip Vas Cath Staphylococcus Epidermidis Gram Negative [facility] 11/01/16 06:57 Aerobic Blood Culture - Preliminary Resulted Blood Peripheral NO GROWTH IN 3 DAYS 11/01/16 06:57 Anaerobic Blood Culture - Preliminary Resulted Blood Peripheral NO GROWTH IN 3 DAYS ROS General: No: Fatigue, Weakness, Other HEENT: No: Sore Throat, Dysphagia, Other Cardiac: No: Chest Pain, Edema, Palpitations, Other Pulmonary: No: Cough, SOB, Wheezing, Other GI: No: Abdominal Pain, BM, Diarrhea, N/V, 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 He is alert and awake. HEAD: Normocephalic without any lesion or mass noted. Facial features appear symmetric. EYES: [place], Normal eye movement, No icterus. MOUTH/THROAT: Buccal mucosa is moist. NECK: Supple. No nuchal rigidity or lymphadenopathy. Trachea midline without deviation. Thyroid not palpable, no bruits appreciated. CARDIAC: Regular rhythm, regular rate, S1 and S2 are heard. No murmur.. LUNGS: Clear to auscultation bilaterally. No wheezes. ABDOMEN: Soft, nontender, no organomegaly or masses. Bowel sounds are heard in all four quadrants. No rebound. No guarding. EXTREMITIES: Trace pedal edema. NEUROLOGICAL: No focal deficits. SKIN:Warm and moist PSYCH: Mood and affect appropriate A/P Assessment and Plan ASSESSMENT . Gram-negative Bacteremia, likely secondary to line infection . Myasthenia gravis exacerbation . Diabetes mellitus type 2 uncontrolled . Morbid obesity . Obstructive sleep apnea . Hypertension . Anemia . Possible sepsis and infection related to Perma-Cath site . Central line removed, tip culture: staph epidermidis. PLAN . Intravenous antibiotics according to infectious disease specialist . Monitor his vital q4 and p.r.n. . DVT prophylaxis with heparin . PUD prophylaxis with Protonix. . Accu-Chek's a.c. and at h.s with sliding-scale . 1800 calories ADA diabetic diet. . The patient can use his own C-PAP machine at h.s. . Supplemental oxygen . Continue vancomycin at least 10-14 days, and this time stop date is 11/14/16 Needs to lose weight Discussed with patient Discussed with nurse AM Nakul Farley Dc, MD Nov 04, 2016 16:00
[2016-11-04] MEDS: HYDROCHLOROTHIAZIDE 12.5 MG CAP PO SCH (20:24)
[2016-11-04] MEDS: LOSARTAN 50 MG TAB PO SCH (20:24)
[2016-11-04] MEDS: amLODIPine BESYLATE 5 MG TAB PO SCH (20:24)
[2016-11-04] MEDS: PRAVASTATIN SOD 20 MG TAB PO SCH (20:24)
[2016-11-04] MEDS: MONTELUKAST SODIUM 10 MG TAB PO SCH (20:25)
[2016-11-05] VITALS (8 sets, daily range): BP systolic 110–144; BP diastolic 69–82; PULSE 59–78; RESP 19–22; TEMP 97–98; O2SAT 94–98
[2016-11-05] MEDS: VANCOMYCIN INJ 2,250 MG in SODIUM CHLORID 0.9% 500 ML INJ 500 ML IV SCH ×2 (01:52→13:44)
[2016-11-05] MEDS: LEVOTHYROXINE SODIUM 100 MCG TAB PO SCH (05:05)
[2016-11-05] MEDS: HEPARIN SODIUM - SQ 10,000 UNITS/ML VIAL SQ SCH ×2 (08:00→19:19)
[2016-11-05 08:16] LABS: HEMATOCRIT 36.9 % (39.0-51.0); MEAN CELL VOLUME 85.3 FL (80.0-100.0); MEAN CORPUSCULAR HEMOGLOBIN 28.3 PG (27.0-34.0); MEAN CORPUSCULAR HGB CONC 33.2 % (32.0-36.0); PLATELET COUNT 193 TH/MM3 (150-450); RED BLOOD COUNT 4.32 MIL/MM3 (4.50-5.90); RED CELL DISTRIBUTION WIDTH 15.8 % (11.6-17.2); REVIEW FLAG FINAL; WHITE BLOOD COUNT 7.8 TH/MM3 (4.0-11.0)
[2016-11-05 08:30] LABS: BICARBONATE 31.5 MEQ/L (21.0-32.0); POTASSIUM 3.7 MEQ/L (3.5-5.1)
[2016-11-05] MEDS: PYRIDOSTIGMINE BROMIDE 60 MG TAB PO SCH ×3 (09:03→17:30)
[2016-11-05] MEDS: azaTHIOprine 50 MG TAB PO SCH ×2 (09:03→20:02)
[2016-11-05] MEDS: PANTOPRAZOLE SOD 40 MG DELAYED RELEASE TAB PO SCH (09:03)
[2016-11-05] MEDS: predniSONE 5 MG TAB PO SCH ×2 (09:03→20:02)
[2016-11-05] MEDS: risperiDONE 0.25 MG TAB PO SCH (09:03)
[2016-11-05] MEDS: GABAPENTIN 300 MG CAP PO SCH ×3 (09:03→17:30)
[2016-11-05] MEDS: NEBIVOLOL 10 MG TAB PO SCH (09:04)
[2016-11-05] MEDS: UMECLIDINIUM 62.5 MCG/VILANTEROL 25 MCG INHALER INH SCH (09:06)
[2016-11-05] MEDS: INSULIN ASPAR PROT 70/30 1,000 UNITS/10 ML VIAL SQ SCH ×2 (09:07→17:31)
[2016-11-05] MEDS: SODIUM CHLORIDE 0.9% FLUSH 5 ML FLUSH FLUSH SCH ×2 (09:07→20:43)
--- NOTE | 2016-11-05 16:14 | HHI.FF ---
Face to Face Verification Diagnosis: (1) Sepsis Home Health Nursing Order: Medical education Nursing assessment with vital signs IV medication administration I have seen patient Brett Jr Mitchell on 11/05/16. My clinical findings support the need for the requested home health care services because: Infection w/ risk of complications Injectable med education/admin I certify that my clinical findings support that this patient is homebound because: Unsafe to leave home unassisted Unable to use public transportation Anya Broderick Nov 05, 2016 16:14
--- NOTE | 2016-11-05 16:47 | HHI.PR ---
Subjective Subjective Remarks no cp no sob no difficulty speaking, eating no facial weakness no fever anxious to go home, understands he needs to have abx at discharge Review of Systems Constitutional Constitutional Remarks 12 point review of systems completed, negative except as noted above Vitals/Results Intake & Output 11/04/16 11/04/16 11/05/16 15:00 23:00 07:00 Intake Total 1020 ml 480 ml 240 ml Balance 1020 ml 480 ml 240 ml Intake Oral 1020 ml 480 ml 240 ml # Voids 1 6 2 # Bowel Movements 2 Vital Signs Vital Signs Date Time Temp Pulse Resp B/P Pulse Ox O2 Delivery O2 Flow Rate FiO2 11/05/16 12:00 97.7 64 22 110/69 96 11/05/16 08:30 59 11/05/16 08:00 97.4 68 22 142/69 94 11/05/16 04:00 97.0 60 20 141/82 98 11/05/16 00:00 97.3 66 20 144/78 97 11/04/16 20:00 70 11/04/16 20:00 97.1 68 18 139/80 97 CBC/BMP: 11/05/16 0735 11/05/16 0735 Lab Results Laboratory Tests Test 11/05/16 07:35 White Blood Count 7.8 TH/MM3 Red Blood Count 4.32 MIL/MM3 Hemoglobin 12.2 GM/DL Hematocrit 36.9 % Mean Corpuscular Volume 85.3 FL Mean Corpuscular Hemoglobin 28.3 PG Mean Corpuscular Hemoglobin 33.2 % Concent Red Cell Distribution Width 15.8 % Platelet Count 193 TH/MM3 Mean Platelet Volume 7.5 FL Sodium Level 143 MEQ/L Potassium Level 3.7 MEQ/L Chloride Level 103 MEQ/L Carbon Dioxide Level 31.5 MEQ/L Anion Gap 9 MEQ/L Blood Urea Nitrogen 14 MG/DL Creatinine 0.84 MG/DL Estimat Glomerular Filtration 97 ML/MIN Rate Random Glucose 144 MG/DL Calcium Level 8.5 MG/DL Physical Exam General General Appearance: Well Developed, Well Nourished, No Acute Distress, Comfortable, Obese Eyes Eye Exam: Pupils Reactive Ears & Nose Ears & Nose Exam: Nasal Mucosa [place] Throat Throat Exam: Oral Mucosa [place] & Moist Neck Neck Exam: Trachea Midline Pulmonary Resp Exam: Breath Sounds Equal Cardiology CV Exam: Normal Sinus Rhythm Gastrointestinal/Abdomen GI Exam: Soft, Non-Tender, Bowel Sounds Present, Non-Distended Musculoskeletal MS Exam: Normal Tone Integumentary Skin Exam: Warm, Dry Skin Remarks Right chest wall with dressing dry and intact Extremeties Extremities Exam: Pedal Pulses Palpable, Trace Edema Neurologic Neuro Exam: Alert, Awake, Oriented, Speech Clear, Moving All Extremities, No Focal Deficits Psychiatric Psych Exam: Appropriate Responses VTE Prophylaxis VTE Prophylaxis Device: SCDs VTE Prophylaxis Meds: Heparin Assessment/Plan Assessment/Plan ASSESSMENT . Gram-negative Bacteremia, likely secondary to line infection . Myasthenia gravis exacerbation . Diabetes mellitus type 2 uncontrolled . Morbid obesity . Obstructive sleep apnea . Hypertension . Anemia . Possible sepsis and infection related to Perma-Cath site . Central line removed, tip culture pending PLAN Status post permacath removal Continue with antibiotics per ID recommendations Follow cultures, results noted Will need antibiotics for at least 10-14 days, and date November 14 Case management consultation for home health care We'll order PICC to be done in the morning Continue with Accu-Cheks before meals and at bedtime and sliding scale ADA diet Sleep apnea Continue with CPAP at night Myasthenia gravis, stable Continue with Imuran, Mestinon, prednisone Hypertension-Continue with blood pressure medications Labs reviewed, stable Plan to discharge tomorrow after antibiotics arranged D/W pt D/W Dr Bahena D/W RN This patient was seen by myself and Dr. Bahena, this note is written on her behalf Anya Broderick Nov 05, 2016 16:47
[2016-11-05] MEDS: HYDROCHLOROTHIAZIDE 12.5 MG CAP PO SCH (20:02)
[2016-11-05] MEDS: LOSARTAN 50 MG TAB PO SCH (20:02)
[2016-11-05] MEDS: PRAVASTATIN SOD 20 MG TAB PO SCH (20:02)
[2016-11-05] MEDS: amLODIPine BESYLATE 5 MG TAB PO SCH (20:02)
[2016-11-05] MEDS: MONTELUKAST SODIUM 10 MG TAB PO SCH (20:06)
[2016-11-06] VITALS (7 sets, daily range): BP systolic 133–156; BP diastolic 62–79; PULSE 58–72; RESP 16–19; TEMP 96.3–98.1; O2SAT 95–98
[2016-11-06] MEDS: VANCOMYCIN INJ 2,250 MG in SODIUM CHLORID 0.9% 500 ML INJ 500 ML IV SCH ×2 (00:24→14:00)
[2016-11-06] MEDS: LEVOTHYROXINE SODIUM 100 MCG TAB PO SCH (05:26)
[2016-11-06] MEDS: HEPARIN SODIUM - SQ 10,000 UNITS/ML VIAL SQ SCH ×2 (08:00→21:50)
[2016-11-06] MEDS: SODIUM CHLORIDE 0.9% FLUSH 5 ML FLUSH FLUSH SCH ×2 (09:00→21:50)
[2016-11-06] MEDS: INSULIN ASPAR PROT 70/30 1,000 UNITS/10 ML VIAL SQ SCH ×2 (09:00→17:01)
[2016-11-06] MEDS: UMECLIDINIUM 62.5 MCG/VILANTEROL 25 MCG INHALER INH SCH (09:00)
[2016-11-06] MEDS: GABAPENTIN 300 MG CAP PO SCH ×3 (09:36→16:58)
[2016-11-06] MEDS: PYRIDOSTIGMINE BROMIDE 60 MG TAB PO SCH ×3 (09:36→16:58)
[2016-11-06] MEDS: azaTHIOprine 50 MG TAB PO SCH ×2 (09:36→21:49)
[2016-11-06] MEDS: risperiDONE 0.25 MG TAB PO SCH (09:36)
[2016-11-06] MEDS: predniSONE 5 MG TAB PO SCH ×2 (09:36→21:49)
[2016-11-06] MEDS: NEBIVOLOL 10 MG TAB PO SCH (09:36)
[2016-11-06] MEDS: PANTOPRAZOLE SOD 40 MG DELAYED RELEASE TAB PO SCH (09:36)
--- NOTE | 2016-11-06 10:14 | HHI.DCPOC ---
Discharge Care Plan Diagnosis: (1) Sepsis Your Health Problems Are: Skin Breakdown Goals to Promote Your Health * To prevent worsening of your condition and complications * To maintain your health at the optimal level Directions to Meet Your Goals Take your medications as prescribed Follow your dietary instruction Follow activity as directed Keep your appointments as scheduled Take your immunizations and boosters as scheduled If your symptoms worsen call your PCP, if no PCP go to Urgent Care Center or Emergency Room Smoking is Dangerous to Your Health. Avoid second hand smoke Call the 24-hour hour crisis hotline for domestic abuse at Anya Broderick [facility] Nov 06, 2016 10:13
--- NOTE | 2016-11-06 10:16 | HHI.PR ---
Subjective Subjective Remarks no cp no sob no difficulty speaking, eating no facial weakness no fever getting PICC today Review of Systems Constitutional Constitutional Remarks 12 point review of systems completed, negative except as noted above Vitals/Results Intake & Output 11/05/16 11/05/16 11/06/16 15:00 23:00 07:00 Intake Total 1680 ml 1800 ml 480 ml Balance 1680 ml 1800 ml 480 ml Intake Oral 1680 ml 1800 ml 480 ml # Voids 4 8 2 # Bowel Movements 1 Vital Signs Vital Signs Date Time Temp Pulse Resp B/P Pulse Ox O2 Delivery O2 Flow Rate FiO2 11/06/16 08:50 96.3 60 16 140/79 98 11/06/16 04:00 96.5 58 19 138/69 98 11/06/16 00:00 98.1 72 18 143/70 97 11/05/16 23:00 71 11/05/16 20:00 98.0 69 19 131/69 97 11/05/16 16:00 97.4 78 20 129/72 97 11/05/16 12:00 97.7 64 22 110/69 96 CBC/BMP: 11/05/16 0735 11/05/16 0735 Physical Exam General General Appearance: Well Developed, Well Nourished, No Acute Distress, Comfortable, Obese Eyes Eye Exam: Pupils Reactive Ears & Nose Ears & Nose Exam: Nasal Mucosa [place] Throat Throat Exam: Oral Mucosa [place] & Moist Neck Neck Exam: Trachea Midline Pulmonary Resp Exam: Breath Sounds Equal Cardiology CV Exam: Normal Sinus Rhythm Gastrointestinal/Abdomen GI Exam: Soft, Non-Tender, Bowel Sounds Present, Non-Distended Musculoskeletal MS Exam: Normal Tone Integumentary Skin Exam: Warm, Dry Skin Remarks Right chest wall with dressing dry and intact Extremeties Extremities Exam: Pedal Pulses Palpable, Trace Edema Neurologic Neuro Exam: Alert, Awake, Oriented, Speech Clear, Moving All Extremities, No Focal Deficits Psychiatric Psych Exam: Appropriate Responses VTE Prophylaxis VTE Prophylaxis Device: SCDs VTE Prophylaxis Meds: Heparin Assessment/Plan Assessment/Plan ASSESSMENT . Gram-negative Bacteremia, likely secondary to line infection . Myasthenia gravis exacerbation . Diabetes mellitus type 2 uncontrolled . Morbid obesity . Obstructive sleep apnea . Hypertension . Anemia . Possible sepsis and infection related to Perma-Cath site . Central line removed, tip culture pending PLAN Status post permacath removal Continue with antibiotics per ID recommendations Follow cultures, results noted Will need antibiotics for at least 10-14 days, and date November 14 Case management consultation for home health care PICC todayy Continue with Accu-Cheks before meals and at bedtime and sliding scale ADA diet Sleep apnea Continue with CPAP at night Myasthenia gravis, stable Continue with Imuran, Mestinon, prednisone Hypertension-Continue with blood pressure medications Plan to discharge tomorrow after antibiotics arranged F/U PCP, neurology Diet -diabetic Activity-as tolerated D/W pt D/W Dr Leone D/W RN This patient was seen by myself and Dr. Leone, this note is written on her behalf Anya Broderick Nov 06, 2016 10:16
--- NOTE | 2016-11-06 11:33 | RADRPT ---
EXAM DATE/TIME: 11/06/2016 10:44 [facility] COMPARISON: CHEST SINGLE AP, August 23, 2016, 19:04. INDICATIONS : Right side picc line placement. MEDICAL HISTORY : Hypertension. Hypercholesterolemia. diabetes SURGICAL HISTORY : port placement ENCOUNTER: Initial ACUITY: 4 - 6 days PAIN SCORE: 0/10 LOCATION: Bilateral chest FINDINGS: Portable AP view of the chest demonstrates a normal-sized cardiac silhouette. No effusion, consolidat ion, or pneumothorax is visualized. The bones and soft tissues demonstrate no acute abnormality. The right upper extremity PICC is looped overlying the axillary region and is located in an uncertain ves wade. CONCLUSION: The right upper extremity PICC is not in appropriate location. It is looped overlying the axillary re gion. Marshall Espinal MD on November 06, 2016 at 11:29 Board Certified Radiologist. This report was verified electronically.
--- NOTE | 2016-11-06 13:05 | HHI.FF ---
Infusion Therapy Location of Infusion Therapy: Home Health Care IV Infusion Order Patient Information Patient Weight 162.2 kg Diagnosis: Diagnosis Staph epi line related bacteremia Coded Allergies: Penicillin (Verified Allergy, Unknown, Hives, 10/31/16) THROAT SWELLING Uncoded Allergies: maxipime (Adverse Reaction, Severe, Burning, 03/27/16) cefepime (Adverse Reaction, Unknown, Burning, 03/27/16) Administer Medication Vancomycin Vancomycin 2.25 gm IV q12h Stop Treatment: Nov 13, 2016 Additional Information Venous access: PICC Line Additional Instructions [x] Peripheral flush and dressing changes per protocol [x] Implanted port and central assembly line brazer: * Implanted port: 10 ml Normal Saline followed by 5 ml Heparin 100 units/ml Heparin flush after each use and monthly to maintain. [] May leave port accessed during therapy. [] May leave peripheral site accessed for duration of therapy. [x] If patient has SOB or respiratory distress, check oxygen saturation. If less than 90% or clinical signs of respiratory distress, administer oxygen at 2 L/min. via nasal cannula and notify physician. [x] Anaphylaxis/Reaction orders: * Stop infusion. * Keep IV line open with saline flush. * Notify physician. * Monitor vital signs every 15 minutes until symptoms resolve. * Check Oxygen saturation; Oxygen at 2 L/min. via nasal cannula if less than 90% or clinical signs of respiratory distress. * Administer diphenhydramine (Benadryl) 25 mg IV STAT, (unless patient has received as pre-med). May repeat once, if necessary. * Solu-Cortef 250 mg IVP over 30-60 seconds, use 100 mg vials for each dissolution. * Epinephrine (1mg/1 ml) 0.3 mg subcutaneously or IVP now with any signs of respiratory distress. * Check with physician for new additional pre-med orders if patient is re- challenged or re-treated. [x] May remove PICC line when treatment complete, after confirming with Physician. [x] If the patient is admitted to the hospital, the ED, or transferred via [facility] , complete transfer form including medication reconciliation order sheet. Laboratory Tests Weekly Labs: CBC w/diff, Creatinine, Vancomycin Trough (November 08, call me with results) Reta Martin MD Nov 06, 2016 13:05
--- NOTE | 2016-11-06 13:07 | HHI.IDPN ---
Subjective Subjective Remarks Notes reviewed Temps ok Clinically doing well BC and Line tip with Staph epi Repeat BC negative Antibiotics Vancomycin Lines PIV Past Medical History Morbid obesity Obstructive sleep apnea COPD Hypertension Diabetes mellitus type 2. He does take insulin for his blood sugars Anemia Gastroesophageal reflux disease Lower extremity edema Past Surgical History Infusaport placement x 2, and removal Previous colonoscopy Allergies: Coded Allergies: Penicillin (Verified Allergy, Unknown, Hives, 10/31/16) THROAT SWELLING Uncoded Allergies: maxipime (Adverse Reaction, Severe, Burning, 03/27/16) cefepime (Adverse Reaction, Unknown, Burning, 03/27/16) Objective . Vital Signs Date Time Temp Pulse Resp B/P Pulse Ox O2 Delivery O2 Flow Rate FiO2 11/06/16 08:50 96.3 60 16 140/79 98 11/06/16 04:00 96.5 58 19 138/69 98 11/06/16 00:00 98.1 72 18 143/70 97 11/05/16 23:00 71 11/05/16 20:00 98.0 69 19 131/69 97 11/05/16 16:00 97.4 78 20 129/72 97 11/05/16 11/05/16 11/06/16 15:00 23:00 07:00 Intake Total 1680 ml 1800 ml 480 ml Balance 1680 ml 1800 ml 480 ml Intake Oral 1680 ml 1800 ml 480 ml # Voids 4 8 2 # Bowel Movements 1 . Laboratory Tests Test 11/05/16 07:35 White Blood Count 7.8 TH/MM3 Red Blood Count 4.32 MIL/MM3 Hemoglobin 12.2 GM/DL Hematocrit 36.9 % Mean Corpuscular Volume 85.3 FL Mean Corpuscular Hemoglobin 28.3 PG Mean Corpuscular Hemoglobin 33.2 % Concent Red Cell Distribution Width 15.8 % Platelet Count 193 TH/MM3 Mean Platelet Volume 7.5 FL Laboratory Tests Test 11/05/16 07:35 Sodium Level 143 MEQ/L Potassium Level 3.7 MEQ/L Chloride Level 103 MEQ/L Carbon Dioxide Level 31.5 MEQ/L Anion Gap 9 MEQ/L Blood Urea Nitrogen 14 MG/DL Creatinine 0.84 MG/DL Estimat Glomerular Filtration 97 ML/MIN Rate Random Glucose 144 MG/DL Calcium Level 8.5 MG/DL Imaging Upper Extremity Ultrasound 11/01/16 0000 Signed Impressions: Service Date/Time: Tuesday, November 01, 2016 15:06 - CONCLUSION: 1. No venous thrombosis identified. Valdemar Blevins MD Central Venous Line 11/01/16 0000 Signed Impressions: Service Date/Time: Tuesday, November 01, 2016 00:00 - CONCLUSION: Uncomplicated Permcath removal. Braxton Dimas MD Physical Exam GENERAL: , awake and alert, NAD. SKIN: Warm and moist. No generalized rash HEENT: [place] conjunctivae, no petechia or hemorrhage. No scleral icterus. Moist oral mucosa. NECK: Short and obese. Supple, nontender, no meningeal signs. Has some mild swelling at base of left side of his neck where he had the tunnelled cath CARDIOVASCULAR: Regular rate and rhythm without murmurs, gallops, or rubs. Soft heart sounds. Permacath exit site has some induration and small amount of serous drainage. RESPIRATORY: Clear to auscultation. Decreased breath sounds at the bases. GASTROINTESTINAL: Abdomen obese, soft, non-tender, nondistended.. MUSCULOSKELETAL: Extremities without clubbing, cyanosis, or edema. No calf tenderness. NEUROLOGICAL: Non-focal PSYCH: Normal affect, calm and cooperative Assessment & Plan Remarks IMPRESSION Sepsis, with BC (+)Staph epi, from permacath infection - had fever and chills during his plasmapheresis Myasthenia gravis Sleep apnea, COPD Morbid obesity RECOMMENDATION Continue IV Vancomycin - give until November 13 Abx form filled out OK for D/C once arrangements made D/W Reta Davis MD Nov 06, 2016 13:07
--- NOTE | 2016-11-06 13:42 | RADRPT ---
EXAM DATE/TIME: 11/06/2016 11:56 [facility] COMPARISON: CHEST SINGLE AP, November 06, 2016, 10:44. INDICATIONS : Right side picc line placement. MEDICAL HISTORY : Hypercholesterolemia. Hypertension Chronic obstructive pulmonary disease. SURGICAL HISTORY : None. ENCOUNTER: Initial ACUITY: 4 - 6 days PAIN SCORE: 0/10 LOCATION: Bilateral chest FINDINGS: A single view of the chest demonstrates the lungs to be symmetrically aerated without evidence of mas s, infiltrate or effusion. Right upper extremity PICC line has been inserted. Its tip is in the superior vena cava. The cardiomediastinal contours are unremarkable. Osseous structures are intact. CONCLUSION: Satisfactory position of right upper cavity PICC line. No evidence of acute process. John Paul Kirkland MD on November 06, 2016 at 13:39 Board Certified Radiologist. This report was verified electronically.
[2016-11-06] MEDS: LOSARTAN 50 MG TAB PO SCH (21:49)
[2016-11-06] MEDS: PRAVASTATIN SOD 20 MG TAB PO SCH (21:49)
[2016-11-06] MEDS: amLODIPine BESYLATE 5 MG TAB PO SCH (21:50)
[2016-11-06] MEDS: MONTELUKAST SODIUM 10 MG TAB PO SCH (21:50)
[2016-11-06] MEDS: HYDROCHLOROTHIAZIDE 12.5 MG CAP PO SCH (21:50)
[2016-11-07] VITALS (7 sets, daily range): BP systolic 126–145; BP diastolic 63–94; PULSE 57–79; RESP 16–18; TEMP 96.3–97.5; O2SAT 95–99
[2016-11-07] MEDS: VANCOMYCIN INJ 2,250 MG in SODIUM CHLORID 0.9% 500 ML INJ 500 ML IV SCH ×2 (01:22→13:58)
[2016-11-07] MEDS: LEVOTHYROXINE SODIUM 100 MCG TAB PO SCH (05:30)
[2016-11-07] MEDS: HEPARIN SODIUM - SQ 10,000 UNITS/ML VIAL SQ SCH ×2 (08:00→20:08)
[2016-11-07] MEDS: azaTHIOprine 50 MG TAB PO SCH ×2 (08:59→20:14)
[2016-11-07] MEDS: GABAPENTIN 300 MG CAP PO SCH ×3 (09:00→17:09)
[2016-11-07] MEDS: PYRIDOSTIGMINE BROMIDE 60 MG TAB PO SCH ×3 (09:00→17:09)
[2016-11-07] MEDS: UMECLIDINIUM 62.5 MCG/VILANTEROL 25 MCG INHALER INH SCH (09:00)
[2016-11-07] MEDS: NEBIVOLOL 10 MG TAB PO SCH (09:00)
[2016-11-07] MEDS: PANTOPRAZOLE SOD 40 MG DELAYED RELEASE TAB PO SCH (09:00)
[2016-11-07] MEDS: INSULIN ASPAR PROT 70/30 1,000 UNITS/10 ML VIAL SQ SCH ×2 (09:00→17:09)
[2016-11-07] MEDS: SODIUM CHLORIDE 0.9% FLUSH 5 ML FLUSH FLUSH SCH ×2 (09:00→20:16)
[2016-11-07] MEDS: risperiDONE 0.25 MG TAB PO SCH (09:00)
[2016-11-07] MEDS: predniSONE 5 MG TAB PO SCH ×2 (09:00→20:14)
--- NOTE | 2016-11-07 12:13 | HHI.PR ---
Subjective Subjective Remarks no cp no sob no difficulty speaking, eating no facial weakness no fever dc delayed due to insurance approval Review of Systems Constitutional Constitutional Remarks 12 point review of systems completed, negative except as noted above Vitals/Results Intake & Output 11/06/16 11/06/16 11/07/16 15:00 23:00 07:00 Intake Total 720 ml 823 ml 510 ml Balance 720 ml 823 ml 510 ml Intake Oral 720 ml 480 ml IV Total 343 ml 510 ml # Voids 3 2 # Bowel Movements 1 Vital Signs Vital Signs Date Time Temp Pulse Resp B/P Pulse Ox O2 Delivery O2 Flow Rate FiO2 11/07/16 08:00 96.9 67 16 143/94 96 11/07/16 04:00 96.3 57 18 133/68 96 11/07/16 00:00 96.6 67 18 130/63 99 11/06/16 20:51 62 11/06/16 20:00 96.7 68 18 137/62 95 11/06/16 16:46 97.3 68 16 156/78 98 CBC/BMP: 11/05/16 0735 11/07/16 0530 Lab Results Laboratory Tests Test 11/07/16 05:30 Creatinine 0.73 MG/DL Estimat Glomerular Filtration 114 ML/MIN Rate Physical Exam General General Appearance: Well Developed, Well Nourished, No Acute Distress, Comfortable, Obese Eyes Eye Exam: Pupils Reactive Ears & Nose Ears & Nose Exam: Nasal Mucosa [place] Throat Throat Exam: Oral Mucosa [place] & Moist Neck Neck Exam: Trachea Midline Pulmonary Resp Exam: Breath Sounds Equal Cardiology CV Exam: Normal Sinus Rhythm Gastrointestinal/Abdomen GI Exam: Soft, Non-Tender, Bowel Sounds Present, Non-Distended Musculoskeletal MS Exam: Normal Tone Integumentary Skin Exam: Warm, Dry Skin Remarks Right chest wall with dressing dry and intact Extremeties Extremities Exam: Pedal Pulses Palpable, Trace Edema Neurologic Neuro Exam: Alert, Awake, Oriented, Speech Clear, Moving All Extremities, No Focal Deficits Psychiatric Psych Exam: Appropriate Responses VTE Prophylaxis VTE Prophylaxis Device: SCDs VTE Prophylaxis Meds: Heparin Assessment/Plan Assessment/Plan ASSESSMENT . Gram-negative Bacteremia, likely secondary to line infection . Myasthenia gravis exacerbation . Diabetes mellitus type 2 uncontrolled . Morbid obesity . Obstructive sleep apnea . Hypertension . Anemia . Possible sepsis and infection related to Perma-Cath site . Central line removed, tip culture pending PLAN Status post permacath removal Continue with antibiotics per ID recommendations Follow cultures, results noted Will need antibiotics for at least 10-14 days, and date November 14 Case management consultation for home health care PICC todayy Continue with Accu-Cheks before meals and at bedtime and sliding scale ADA diet Sleep apnea Continue with CPAP at night Myasthenia gravis, stable Continue with Imuran, Mestinon, prednisone Hypertension-Continue with blood pressure medications Plan to discharge today, dc held yesterday due to insurance issues F/U PCP, neurology Diet -diabetic Activity-as tolerated D/W pt D/W Dr Leone D/W RN D/W CM This patient was seen by myself and Dr. Leone, this note is written on her behalf Discharge Minutes: 45 Anya Broderick Nov 07, 2016 12:13
[2016-11-07] MEDS: PRAVASTATIN SOD 20 MG TAB PO SCH (20:15)
[2016-11-07] MEDS: LOSARTAN 50 MG TAB PO SCH (20:15)
[2016-11-07] MEDS: amLODIPine BESYLATE 5 MG TAB PO SCH (20:15)
[2016-11-07] MEDS: MONTELUKAST SODIUM 10 MG TAB PO SCH (20:15)
[2016-11-07] MEDS: HYDROCHLOROTHIAZIDE 12.5 MG CAP PO SCH (20:15)
[2016-11-08] VITALS: BP 130/68; PULSE 56; RESP 18; TEMP 97.6; O2SAT 95
[2016-11-08] MEDS: VANCOMYCIN INJ 2,250 MG in SODIUM CHLORID 0.9% 500 ML INJ 500 ML IV SCH ×2 (00:59→11:59)
[2016-11-08 04:30] VITALS: BP 143/72; PULSE 58; RESP 18; TEMP 97; O2SAT 98
[2016-11-08] MEDS: LEVOTHYROXINE SODIUM 100 MCG TAB PO SCH (05:56)
[2016-11-08 08:00] VITALS: BP 140/89; PULSE 62; RESP 16; TEMP 97; O2SAT 97
[2016-11-08] MEDS: HEPARIN SODIUM - SQ 10,000 UNITS/ML VIAL SQ SCH (08:00)
[2016-11-08] MEDS: SODIUM CHLORIDE 0.9% FLUSH 5 ML FLUSH FLUSH SCH (09:00)
[2016-11-08] MEDS: UMECLIDINIUM 62.5 MCG/VILANTEROL 25 MCG INHALER INH SCH (09:00)
[2016-11-08] MEDS: GABAPENTIN 300 MG CAP PO SCH ×2 (09:28→11:58)
[2016-11-08] MEDS: predniSONE 5 MG TAB PO SCH (09:28)
[2016-11-08] MEDS: PANTOPRAZOLE SOD 40 MG DELAYED RELEASE TAB PO SCH (09:28)
[2016-11-08] MEDS: risperiDONE 0.25 MG TAB PO SCH (09:28)
[2016-11-08] MEDS: azaTHIOprine 50 MG TAB PO SCH (09:28)
[2016-11-08] MEDS: PYRIDOSTIGMINE BROMIDE 60 MG TAB PO SCH ×2 (09:28→11:58)
[2016-11-08] MEDS: NEBIVOLOL 10 MG TAB PO SCH (09:28)
[2016-11-08] MEDS: INSULIN ASPAR PROT 70/30 1,000 UNITS/10 ML VIAL SQ SCH (09:38)
--- NOTE | 2016-11-08 09:47 | HHI.PR ---
Subjective Subjective Remarks no cp no sob no difficulty speaking, eating no facial weakness no fever concerned about small bmp over site where permacath was removed as he had prior hematoma no hematoma noted, small indurated area, minimal erythema, healing well dc delayed due to insurance approval Review of Systems Constitutional Constitutional Remarks 12 point review of systems completed, negative except as noted above Vitals/Results Intake & Output 11/07/16 11/07/16 11/08/16 15:00 23:00 07:00 Intake Total 720 ml 906 ml 510 ml Balance 720 ml 906 ml 510 ml Intake Oral 720 ml 600 ml IV Total 306 ml 510 ml # Voids 3 2 # Bowel Movements 1 Vital Signs Vital Signs Date Time Temp Pulse Resp B/P Pulse Ox O2 Delivery O2 Flow Rate FiO2 11/08/16 04:30 97.0 58 18 143/72 98 11/08/16 00:00 97.6 56 18 130/68 95 11/07/16 20:26 65 11/07/16 20:00 97.4 79 18 145/71 96 11/07/16 16:00 97.5 67 16 144/68 99 11/07/16 12:51 97.5 69 16 126/69 95 CBC/BMP: 11/05/16 0735 11/07/16 0530 Physical Exam General General Appearance: Well Developed, Well Nourished, No Acute Distress, Comfortable, Obese Eyes Eye Exam: Pupils Reactive Ears & Nose Ears & Nose Exam: Nasal Mucosa [place] Throat Throat Exam: Oral Mucosa [place] & Moist Neck Neck Exam: Trachea Midline Pulmonary Resp Exam: Breath Sounds Equal Cardiology CV Exam: Normal Sinus Rhythm Gastrointestinal/Abdomen GI Exam: Soft, Non-Tender, Bowel Sounds Present, Non-Distended Musculoskeletal MS Exam: Normal Tone Integumentary Skin Exam: Warm, Dry Skin Remarks Right chest wall with dressing dry and intact Extremeties Extremities Exam: Pedal Pulses Palpable, Trace Edema Neurologic Neuro Exam: Alert, Awake, Oriented, Speech Clear, Moving All Extremities, No Focal Deficits Psychiatric Psych Exam: Appropriate Responses VTE Prophylaxis VTE Prophylaxis Device: SCDs VTE Prophylaxis Meds: Heparin Assessment/Plan Assessment/Plan . Gram-negative Bacteremia, likely secondary to line infection . Myasthenia gravis exacerbation . Diabetes mellitus type 2 uncontrolled . Morbid obesity . Obstructive sleep apnea . Hypertension . Anemia . Possible sepsis and infection related to Perma-Cath site . Central line removed, tip culture pending PLAN Status post permacath removal wound stable, no hematoma. Healing well Continue with antibiotics per ID recommendations Follow cultures, results noted Will need antibiotics for at least 10-14 days, and date November 14 Case management consultation for home health care PICC Continue with Accu-Cheks before meals and at bedtime and sliding scale ADA diet Sleep apnea Continue with CPAP at night Myasthenia gravis, stable Continue with Imuran, Mestinon, prednisone Hypertension-Continue with blood pressure medications Plan to discharge today, dc held x 3 days due to insurance approval. Poss. ready this afternoon. F/U PCP, neurology Diet -diabetic Activity-as tolerated D/W pt D/W Dr Leone D/W RN D/W CM This patient was seen by myself and Dr. Leone, this note is written on her behalf Anya Broderick Nov 08, 2016 09:47
[2016-11-08 13:00] VITALS: BP 137/66; PULSE 74; RESP 18; TEMP 97.3; O2SAT 96
--- NOTE | 2016-12-04 19:47 | HHI.DS ---
Discharge Summary Admission Date Oct 31, 2016 at 17:07 Discharge Date: Nov 08, 2016 Admitting Diagnosis (1) Sepsis (2) Depression (3) Hyperlipidemia (4) Obesity (5) MICK on CPAP (6) DM (diabetes mellitus) (7) HTN (hypertension) Procedures Status post permacath removal 11/01/16 Imaging Last Impressions Chest X-Ray 11/06/16 0000 Signed Impressions: Service Date/Time: Sunday, November 06, 2016 11:56 - CONCLUSION: Satisfactory position of right upper cavity PICC line. No evidence of acute process. John Paul Kirkland MD Upper Extremity Ultrasound 11/01/16 0000 Signed Impressions: Service Date/Time: Tuesday, November 01, 2016 15:06 - CONCLUSION: 1. No venous thrombosis identified. Valdemar Blevins MD Central Venous Line 11/01/16 0000 Signed Impressions: Service Date/Time: Tuesday, November 01, 2016 00:00 - CONCLUSION: Uncomplicated Permcath removal. Braxton Dimas MD Hospital Course This is a pleasant, morbidly obese 51-year-old male who has been experiencing some increased onset of weakness and slurring and drooping of his eyes over the past week. He also initially had some dizziness and imbalance with his myasthenia gravis exacerbation. The patient went into his primary care physician's office, Genoveva forrest MD for a followup. The patient was noted to have increased weight, elevated blood pressure at 162/74. He also has been suffering with some mild erythema around his PermaCath port. This has been monitored and initially it was thought that it was pruritic in nature, but when the patient was receiving his last treatment recently, he did have a reaction with fever and chills when using that port. Most of this information is being gathered from the record. During my assessment with the patient, he states that his symptoms are now under control. He does sleep at night with BiPAP on. He was alert, oriented, cooperative and a good historian. The patient denied any chest pain. Denies any cough, no fever, no nausea or vomiting. The patient is a diabetic type 2 for greater than 10 years. He has multiple medical comorbidities which do exacerbate at times with his myasthenia gravis. Was evaluated in the ED. DIAGNOSTIC DATA WBC count 7.8, RBC 4.32, hemoglobin 12.3, hematocrit 37.2, platelet count 159, neutrophil percentage auto 70.6, monocyte auto percentage 11.1. Chemistry sodium 141, potassium 4, chloride 107, carbon dioxide 23.7, amnion gap 10, BUN 15, creatinine 0.72, random glucose 119, calcium 8.5. His urine is yellow and clear, pH is 6, specific gravity 1.035, negative for protein, occult blood, nitrites bilirubin and leukocyte esterase. His glucose is elevated at 1000. His ketones are 10. IMAGING STUDIES None Pt was admitted for: . Gram-negative Bacteremia, likely secondary to line infection . Myasthenia gravis exacerbation . Diabetes mellitus type 2 uncontrolled . Morbid obesity . Obstructive sleep apnea . Hypertension . Anemia . Possible sepsis and infection related to Perma-Cath site . Central line removed, tip culture pending During the course of the hospitalization, the following took place: Pt. admitted, put on IVF, started on antibiotics, cultures obtained. ID consulted. Source of infection was thought to be line related. Recommendation was made to remove line. Status post permacath removal wound was stable, no hematoma. Healing well Continue with antibiotics per ID recommendations Follow cultures, results noted-staph epidermis, GNR Per ID --Will need antibiotics for at least 10-14 days, and date November 14 Case management consultation for home health care PICC line ordered. For diabetes, continued with with Accu-Cheks before meals and at bedtime and sliding scale ADA diet Sleep apnea Continued with CPAP at night Myasthenia gravis, was stable Continue with Imuran, Mestinon, prednisone Hypertension-Continue with blood pressure medications Pt improved, no fever. Stable. Discharge delay x 3 days due to insurance approval. Finally discharged when all C arrangements made Pt Condition on Discharge: Stable Discharge Disposition: Disch w/ Home Health Serv Discharge Instructions DIET: Follow Instructions for: Heart Healthy Diet, Diabetic Diet Activities you can perform: Weight Bearing as Miguel Follow up Referrals: Neurology PCP Follow-up Continued Medications: Azathioprine (Imuran) 50 Mg Tab 75 MG PO BID Hazardous agent: use appropriate precautions for handling and disposal. Immunosuppression #60 Ref 0 TAB Canagliflozin (Invokana) 300 Mg Tab 300 MG PO DAILY Take before 1st meal of day. Blood Sugar Management #30 Ref 0 TAB Gabapentin (Gabapentin) 300 Mg Cap 300 MG PO TID #90 Ref 0 CAP Insulin Aspart Protam-Asp 70-30 Inj (Novolog Mix 70-30 Inj) 1,000 Unit/10 Ml Vial 85 UNITS SQ HS Blood Sugar Management #10 Ref 0 ML Insulin Aspart Protam-Asp 70-30 Inj (Novolog Mix 70-30 Inj) 1,000 Unit/10 Ml Vial 80 UNITS SQ DAILY Blood Sugar Management #10 Ref 0 ML Levothyroxine (Synthroid) 100 Mcg Tab 100 MCG PO DAILY Thyroid #30 Ref 0 TAB Lovastatin (Lovastatin) 20 Mg Tab 20 MG PO HS Cholesterol Management #30 Ref 0 TAB Metformin (Metformin) 1,000 Mg Tab 1000 MG PO BIDPC With meals Blood Sugar Management #60 Ref 0 TAB Montelukast (Singulair) 10 Mg Tab 10 MG PO HS #30 Ref 0 TAB Nebivolol (Bystolic) 20 Mg Tab 20 MG PO DAILY Blood Pressure Management #30 Ref 0 TAB Ekfwmsuazm-Jyxsfohnev-Bqjrjjsfqspfjlvzbrd (Tribenzor) 20-5-12.5 mg Tab 1 TAB PO DAILY Blood Pressure Management #30 Ref 0 TAB Pantoprazole (Protonix) 40 Mg Tab 40 MG PO DAILY Reflux #30 Ref 0 TAB Prednisone (Prednisone) 5 Mg Tab 7.25 MG PO BID Ref 0 TAB Pyridostigmine (Mestinon) 60 Mg Tab 60 MG PO TID Manage Myastenia Gravis #180 Ref 0 TAB Risperidone (Risperdal) 0.25 Mg Tab 0.25 MG PO DAILY #30 Ref 0 TAB Umeclidinium-Vilanterol Inh (Anoro Ellipta Inh) 62.5-25 Mcg/Act Aero 1 PUFF INH DAILY COPD #1 Ref 0 INHALER ([Cpap]) Discontinued Medications: Azithromycin (Zithromax) 500 Mg Tab 500 MG PO DAILY Infection #4 Ref 0 TAB Anya Broderick [facility] Dec 04, 2016 19:47
== END 2016-11-08 15:04 | disposition home health service (06) | DRG 314 ==
LOC: HOCA 17:07
PROVIDERS: ADMIT Internal Medicine; ATTEND Internal Medicine
PROC: 05PYX3Z Removal of Infusion Device from Upper Vein, External Approach (ICD-10-PCS; principal; 2016-11-01)
PROC: 02HV33Z Insertion of Infusion Device into Superior Vena Cava, Percutaneous Approach (ICD-10-PCS; 2016-11-06)
PROC: B548ZZA Ultrasonography of Superior Vena Cava, Guidance (ICD-10-PCS; 2016-11-06)
DX: T80.219A Unspecified infection due to central venous catheter, initial encounter (principal); A41.9 Sepsis, unspecified organism; G70.01 Myasthenia gravis with (acute) exacerbation; E11.65 Type 2 diabetes mellitus with hyperglycemia; Z68.43 Body mass index [BMI] 50.0-59.9, adult; I10 Essential (primary) hypertension; E66.01 Morbid (severe) obesity due to excess calories; G47.33 Obstructive sleep apnea (adult) (pediatric); J44.9 Chronic obstructive pulmonary disease, unspecified; D64.9 Anemia, unspecified; K21.9 Gastro-esophageal reflux disease without esophagitis; R60.0 Localized edema; Z87.891 Personal history of nicotine dependence; E03.9 Hypothyroidism, unspecified
CPT/HCPCS: 36514; 36569; 36589; 36593; 71010; 76937; 80048; 80202; 81001; 82565; 82948; 83735; 84100; 85025; 85027; 86403; 87040; 87071; 87077; 87186; 87205; 93971; 96365; 96366; 96367; 96368; 96372; 96375; G0463; J0610; J1642; J1644; J1815; J2175; J2997; J3370; J7030; J7040; J7050; J7500; J7512; P9045

== ENCOUNTER 2016-11-09 21:49 | Emergency (ER) | payer BC ==
[~2016-11-09] VITALS: Ht 180.3 cm; Wt 165.0 kg
[~2016-11-09 21:49] MED LIST changes: -AZAT50 PO; +IMUR50TA PO; +UMEC1AER INH; -ZITH500T PO
[2016-11-09 21:51] VITALS: BP 139/79; PULSE 75; RESP 16; TEMP 97.9; O2SAT 92
[2016-11-10 02:03] VITALS: BP 150/74; PULSE 59; RESP 16; TEMP 97.6; O2SAT 94
--- NOTE | 2016-11-10 03:00 | PD ---
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 The patient was recently admitted to the hospital for sepsis and bacteremia after a permacath became infected, that he had in place for IVIG treatment for his myasthenia gravis. The patient was in the hospital and was just discharged several days ago with a PICC line in the right upper extremity. The patient states the PICC line is come out slowly, "little by little "and now notes that home health care is unable to use the PICC line for his vancomycin administration. The patient states he gets vancomycin twice a day, missed his dose last night and may miss his dose this morning and if he does not have a PICC line placed. PFSH Past Medical History Anxiety: Yes Depression: No Cardiovascular Problems: Yes (HTN) High Cholesterol: Yes COPD: Yes Diabetes: Yes Patient Takes Glucophage: No Diminished Hearing: No Endocrine: Yes Gastrointestinal Disorders: Yes GERD: Yes Genitourinary: No Hypertension: Yes Immune Disorder: Yes (MYASTINIA GRAVIS) Implanted Vascular Access Dvce: Yes (LEFT CHEST PERMACATH) Musculoskeletal: Yes (NECK ) Neurologic: Yes (Myasthenia Gravis) Reproductive: No Respiratory: Yes (COPD, CPAP) Immunizations Current: No Sleep Apnea: Yes (CPAP) Thyroid Disease: Yes Tetanus Vaccination: Unknown Influenza Vaccination: No Past Surgical History Abdominal Surgery: No AICD: No Cardiac Surgery: No Ear Surgery: No Endocrine Surgery: No Eye Surgery: No Joint Replacement: No Oral Surgery: No Pacemaker: No Thoracic Surgery: No Tonsillectomy: Yes Social History Alcohol Use: Yes (OCCASIONALLY) Tobacco Use: No Substance Use: No Allergies-Medications (Allergen,Severity, Reaction): Coded Allergies: Penicillin (Verified Allergy, Unknown, Hives, 11/10/16) THROAT SWELLING Uncoded Allergies: maxipime (Adverse Reaction, Severe, Burning, 03/27/16) cefepime (Adverse Reaction, Unknown, Burning, 03/27/16) Reported Meds & Prescriptions Reported Meds & Active Scripts Active Reported Vancomycin Inj (Vancomycin HCl) 1,000 Mg Inj 1,250 Mg IV Q12HR Anoro Ellipta Inh (Umeclidinium/Vilanterol) 62.5-25 Mcg/Act Aero 1 Puff INH DAILY Imuran (Azathioprine) 50 Mg Tab 75 Mg PO BID Hazardous agent: use appropriate precautions for handling and disposal. Novolog Mix 70-30 Inj (Insulin Aspart Prota 70%/Aspart 30%) 1,000 Unit/10 Ml Vial 80 Units SQ DAILY Novolog Mix 70-30 Inj (Insulin Aspart Prota 70%/Aspart 30%) 1,000 Unit/10 Ml Vial 85 Units SQ HS [Cpap] Prednisone 5 Mg Tab 7.25 Mg PO BID Tribenzor (Ijjhujfeoc-Bdtrlietch-Wyoehjyuhlqwdneomex) 20-5-12.5 mg Tab 1 Tab PO DAILY Synthroid (Levothyroxine Sodium) 100 Mcg Tab 100 Mcg PO DAILY Risperdal (Risperidone) 0.25 Mg Tab 0.25 Mg PO DAILY Mestinon (Pyridostigmine Paden) 60 Mg Tab 60 Mg PO TID Protonix (Pantoprazole Sodium) 40 Mg Tab 40 Mg PO DAILY Singulair (Montelukast Sodium) 10 Mg Tab 10 Mg PO HS Metformin (Metformin HCl) 1,000 Mg Tab 1,000 Mg PO BIDPC With meals Lovastatin 20 Mg Tab 20 Mg PO HS Gabapentin 300 Mg Cap 300 Mg PO TID Invokana (Canagliflozin) 300 Mg Tab 300 Mg PO DAILY Take before 1st meal of day. Bystolic (Nebivolol) 20 Mg Tab 20 Mg PO DAILY Review of Systems Except as stated in HPI: all other systems reviewed are Neg General / Constitutional: No: Fever Musculoskeletal: Positive: Other (PICC line coming out as noted in history of present illness) Physical Exam Narrative GENERAL: Awake, alert, pleasant 51-year-old male who appears his stated age and is in no acute respiratory distress. SKIN: Warm and dry. HEAD: Atraumatic. Normocephalic. EYES: No injection or drainage. ENT: No nasal bleeding or discharge. Mucous membranes pink and moist. NECK: Trachea midline. No JVD. MUSCULOSKELETAL: PICC line in right upper extremity appears to be partially removed, is placed just proximal to the right ECF on the medial side. NEUROLOGICAL: Awake and alert. No obvious cranial nerve deficits. Motor grossly within normal limits. Normal speech. PSYCHIATRIC: Appropriate mood and affect; insight and judgment normal. Data Data Last Documented VS Vital Signs Date Time Temp Pulse Resp B/P Pulse Ox O2 Delivery O2 Flow Rate FiO2 11/10/16 02:03 97.6 59 16 150/74 94 11/09/16 21:51 Room Air Orders Chest, Single Ap (11/10/16 ) Vancomycin Inj (Vancomycin Inj) (11/10/16 03:30) Basic Metabolic Panel (Bmp) (11/10/16 03:25) Vascular Access Team Consult PRN (11/10/16 04:23) Labs Laboratory Tests Test 11/10/16 03:35 Sodium Level 143 MEQ/L Potassium Level 3.7 MEQ/L Chloride Level 107 MEQ/L Carbon Dioxide Level 26.5 MEQ/L Anion Gap 10 MEQ/L Blood Urea Nitrogen 15 MG/DL Creatinine 0.85 MG/DL Estimat Glomerular Filtration 96 ML/MIN Rate Random Glucose 155 MG/DL Calcium Level 8.8 MG/DL [facility] Medical Decision Making Medical Screen Exam Complete: Yes Emergency Medical Condition: Yes Medical Record Reviewed: Yes Interpretation(s) Laboratory Tests Test 11/10/16 03:35 Sodium Level 143 MEQ/L Potassium Level 3.7 MEQ/L Chloride Level 107 MEQ/L Carbon Dioxide Level 26.5 MEQ/L Anion Gap 10 MEQ/L Blood Urea Nitrogen 15 MG/DL Creatinine 0.85 MG/DL Estimat Glomerular Filtration 96 ML/MIN Rate Random Glucose 155 MG/DL Calcium Level 8.8 MG/DL Differential Diagnosis Differential diagnosis includes PlCC line dislodgment, PICC line malfunction, bacteremia, sepsis. Narrative Course A chest x-ray was obtained to evaluate the PICC line placement. Labs are unremarkable. Chest x-ray reveals that the patient's PICC line has moved. Therefore, a consult was placed to the PICC team for replacement PICC. The patient was administered a dose of his vancomycin that he missed last night, 1250 mg intravenously. Patient will be discharged home once PICC line is placed. Diagnosis Primary Impression: Occlusion of peripherally inserted central catheter (PICC) line Qualified Code: T82.898A - Occlusion of peripherally inserted central catheter (PICC) line, initial encounter Additional Instructions: Follow-up with her primary physician. Return if symptoms worsen or progress. Med/Other Pt SpecificInfo: No Change to Meds Disposition: 01 DISCHARGE HOME Condition: Stable Philip Diaz MD Nov 10, 2016 03:00
[2016-11-10] MEDS ORDERED: VANC1000P IV (03:04)
[2016-11-10] MEDS ORDERED: VANCOMYCIN INJ 1,250 MG in SODIUM CHLOR 0.9% 250 ML INJ 250 ML IV ONE (03:30)
--- NOTE | 2016-11-10 03:31 | RADRPT ---
EXAM DATE/TIME: 11/10/2016 03:07 [facility] COMPARISON: CHEST SINGLE AP, November 06, 2016, 11:56. INDICATIONS : PICC line placement. MEDICAL HISTORY : Hypertension. Chronic obstructive pulmonary disease. SURGICAL HISTORY : PICC line. ENCOUNTER: Initial ACUITY: 1 day PAIN SCORE: 0/10 LOCATION: Bilateral chest FINDINGS: A single view of the chest demonstrates the lungs to be symmetrically aerated without evidence of mas s, infiltrate or effusion. The cardiomediastinal contours are unremarkable. Osseous structures are intact. Right PICC line has changed in position with the tip now projected over the subclavian vein. CONCLUSION: PICC line partially pulled back with the tip now projected over the medial right subclavian vein. Blas Olsen MD on November 10, 2016 at 3:28 Board Certified Radiologist. This report was verified electronically.
[2016-11-10 04:33] LABS: BICARBONATE 26.5 MEQ/L (21.0-32.0); POTASSIUM 3.7 MEQ/L (3.5-5.1)
[2016-11-10 08:00] VITALS: BP 192/85; PULSE 68; RESP 18; O2SAT 96
[2016-11-10 10:53] VITALS: BP 155/79; PULSE 72; RESP 19; O2SAT 97
--- NOTE | 2016-11-10 12:11 | PD ---
Physical Exam Narrative General: No apparent distress, well appearing ENT: mmm Neck: Neck is supple, trachea is midline Cardiovascular: Regular rate and rhythm Lungs: No increased respiratory effort noted Neuro: Awake, moves all extremities Data Data Last Documented VS Vital Signs Date Time Temp Pulse Resp B/P Pulse Ox O2 Delivery O2 Flow Rate FiO2 11/10/16 10:53 72 19 155/79 97 Room Air 11/10/16 02:03 97.6 Orders Chest, Single Ap (11/10/16 ) Vancomycin Inj (Vancomycin Inj) (11/10/16 03:30) Basic Metabolic Panel (Bmp) (11/10/16 03:25) Vascular Access Team Consult PRN (11/10/16 04:23) Labs Laboratory Tests Test 11/10/16 03:35 Sodium Level 143 MEQ/L Potassium Level 3.7 MEQ/L Chloride Level 107 MEQ/L Carbon Dioxide Level 26.5 MEQ/L Anion Gap 10 MEQ/L Blood Urea Nitrogen 15 MG/DL Creatinine 0.85 MG/DL Estimat Glomerular Filtration 96 ML/MIN Rate Random Glucose 155 MG/DL Calcium Level 8.8 MG/DL MDM Supervised Visit with JOSHUA: No Narrative Course Signed over to me the patient will go home after PICC line, vascular access team states that this needs to be done as an outpatient through primary care physician at 9 AM Patient updated and got upset as he needs antibiotics at 8 PM tonight, I will talk with our interventional team to help schedule Patient given prescription and will head straight to outpatient interventional area for PICC line today. Physician Communication Physician Communication Dr. Kirkland will help facilitate Diagnosis Primary Impression: Occlusion of peripherally inserted central catheter (PICC) line Qualified Code: T82.898A - Occlusion of peripherally inserted central catheter (PICC) line, initial encounter Patient Instructions: General Instructions Departure Forms: Tests/Procedures Additional Instruction: Follow-up with your primary physician. Return if symptoms worsen or progress. Med/Other Pt SpecificInfo: No Change to Meds Disposition: 70 TRANSFER TO OTHER FACILITY (outpatient picc area) Condition: Stable Angélica Denise MD Nov 10, 2016 12:11 Angélica Denise MD Nov 10, 2016 12:11
== END 2016-11-10 11:51 | disposition home or self-care (01) ==
LOC: NEPC 21:49
DX: T82.514A Breakdown (mechanical) of infusion catheter, initial encounter (principal); G70.00 Myasthenia gravis without (acute) exacerbation; I10 Essential (primary) hypertension; E11.9 Type 2 diabetes mellitus without complications; F41.9 Anxiety disorder, unspecified; Z79.4 Long term (current) use of insulin; Z79.2 Long term (current) use of antibiotics
CPT/HCPCS: 71010; 80048; 96365; 99285; J3370; J7050

== ENCOUNTER 2016-11-10 11:26 | Day surgery (SDC) | payer BC ==
[~2016-11-10 11:26] MED LIST changes: +VANC1000P IV
[2016-11-10 11:45] VITALS: BP 160/88; PULSE 58; RESP 20; TEMP 98; O2SAT 97
[2016-11-10 12:39] VITALS: BP 175/88; PULSE 67; RESP 20; TEMP 98.1; O2SAT 98
--- NOTE | 2016-11-10 12:41 | PD.RAD ---
Radiology Post PICC Prog Note Pre Procedure Diagnosis: (1) Myasthenia exacerbation Post Procedure Diagnosis: (1) Myasthenia exacerbation Procedure: Right PICC line replacement Procedure Date: Nov 10, 2016 Supervising Radiologist Braxton Dimas Proceduralist/Assist: Rosalba Lange, RT(R)() Device Side: Right Hebrew: 4 single lumen cm: 46 Catheter: Power PICC Plan of Activity Patient to Unit: Nursing Unit Patient Condition: Good PICC line can be used immediately Braxton Dimas MD Nov 10, 2016 12:41
[2016-11-10] MEDS ORDERED: SODIUM CHLORIDE 0.9% FLUSH 5 ML FLUSH IVF PRN ×2 (12:45)
--- NOTE | 2016-11-10 17:08 | RADRPT ---
EXAM DATE/TIME: 11/10/2016 12:23 [facility] COMPARISON: No previous studies available for comparison. INDICATIONS : Patient presents with exsisitng PICC line partially pulled out in need of PICC line replacement for a ntibiotics for bacteremia. MEDICAL HISTORY : Myasthenia gravis, HTN, COPD, Diabetes, GERD, CPAP, Thyroid disease SURGICAL HISTORY : Port placement and removal, Permcath placement and removal, Tonsillectomy ENCOUNTER: Initial ACUITY: 1 day PAIN SCORE: 0/10 FLUORO TIME: 0.4 minutes IMAGE SERIES: 1 MEDICATION(S): 1.) 200 units Heparin IV DEVICE(S): 1.) 4 Kiswahili single lumen 46 cm Xcela Power PICC PROCEDURE : 1. Fluoroscopic guidance. 2. Fluoroscopic guided central venous Power PICC line replacement. The risks, benefits and alternatives to the procedure were explained and verbal and written consent w as obtained. The arm was prepped in sterile fashion. Full sterile technique was used, including cap , mask, sterile gloves and gown and a large sterile sheet. Hand hygiene and 2% chlorhexidine prep wa s utilized per protocol for cutaneous antisepsis with appropriate dry time for site. The skin and kwok bcutaneous tissues were infiltrated with local anesthetic solution. Under direct fluoroscopic guidance the previously placed PICC line was removed over a guidewire and a fresh Power Injectable PICC line was cut to prescribed length and positioned with tip at the cavoatr ial junction level. The line was flushed and secured per protocol. CONCLUSION: 1. Uncomplicated central venous Power PICC line replacement. 2. The PICC line can be used immediately. Braxton Dimas MD on November 10, 2016 at 17:06 Board Certified Radiologist. This report was verified electronically.
[2016-11-11] MEDS ORDERED: SODIUM CHLORIDE 0.9% FLUSH 5 ML FLUSH IVF SCH (09:00)
== END 2016-11-10 12:50 | disposition home or self-care (01) ==
LOC: HROP 11:26 → HRIP 11:28 → HROP 12:50
PROVIDERS: ATTEND Emergency Medicine
DX: Z45.2 Encounter for adjustment and management of vascular access device (principal); G70.01 Myasthenia gravis with (acute) exacerbation; I10 Essential (primary) hypertension; E11.9 Type 2 diabetes mellitus without complications; E07.9 Disorder of thyroid, unspecified; J44.9 Chronic obstructive pulmonary disease, unspecified; K21.9 Gastro-esophageal reflux disease without esophagitis
CPT/HCPCS: 36584; C1751; J1642; 36569; 76937; 77001